=== PATIENT | male | born 2005 | race Caucasian/White ===

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

== ENCOUNTER 2025-04-11 18:09 | Emergency (ER) | payer MEDICAID, SELFPAY ==
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
[2025-04-11 19:35] VITALS: BP 112/79; PULSE 79; RESP 18; TEMP 36.8; O2SAT 99; BMI 22.1
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
--- OUTSIDE RECORDS SUMMARY | 2025-04-11 19:52 | XMS RPT_ITS | CCD ---
Author Organization [facility] Inform ion Partnership GUIDE EXCURSION [facility] Care Team Providers Care Shot Peening Operator Name Role Phone Michael Gloria MD Primary Care Provider Unavailable Primary Care Provider UnavailPeyman Olvera Attending Unavailable Michael Gloria Primary Care Unavailable MICHAEL GLORIA Attending Unavailable MICHAEL GLORIA Primary Care Unavailable REFERRED, SELF Referring Unavailable Medications Current Medications Medication Drug Class(es) Dates Sig (Normalized) Sig (Original) amoxicillin 875 mg / clavulanate 125 mg oral tablet (1 source) Penicillin-class Antibacterial Start: 08-01-2019 take 1 tablet by mouth twice daily Amoxicillin-Pot Clavulanate Active 1 TABLET PO TWICE A DAY August 01, 2019 2:18pm cyproheptadine hydrochloride 4 mg oral tablet (1 source) Start: 07-18-2023 take 1 tablet by mouth twice daily cyproheptadine (PERIACTIN) 4 MG tablet Take 1 Tablet (4 mg) by mouth 2 times daily 60 Tablet 5 07/18/2023 Active doxycycline monohydrate 100 mg oral capsule (1 source) Tetracycline-class Drug Start: 03-08-2022 take 100 mg by mouth twice daily Doxycycline Monohydrate Active 100 MG PO TWICE A DAY March 08, 2022 12:00am FLUoxetine 20 mg oral capsule (2 sources) Serotonin Reuptake Inhibitor Start: 02-23-2023 take 1 capsule by mouth once daily FLUoxetine (PROZAC) 10 MG capsule Take 1 Capsule (10 mg) by mouth daily 30 Capsule 2 02/23/2023 Active Start: 02-23-2023 take 1 capsule by mo [facility] once daily FLUoxetine (PROZAC) 20 MG capsule Take 1 Capsule (20 mg) by mouth daily 30 Capsule 2 02/23/2023 Active hydrOXYzine pamoate 25 mg oral capsule (1 source) Antihistamine Start: 03-08-2022 take 25 mg by mouth three times daily as needed Hydroxyzine Pamoate Active 25 MG PO 3 TIMES DAILY NEEDED March 08, 2022 12:00am Completed/Discontinued Medications Medication Drug Class(es) Dates Sig (Normalized) Sig (Original) 200 actuat albuterol 0.09 mg/actuat metered dose inhaler (2 sources) beta2-Adrenergic Agonist Start: 11-23-2012 take 2 puff(s) by inhalation every four hours as needed albuterol 90 mcg/actuation Aero Inhale 2 Puffs as instructed every 4 hours as needed. ( ADAM: Ventolin with dose counter) 1 Inhaler 3 11/23/2012 Active Comment on above: Inhale 2 Puffs as in structed every 4 hours as needed. ( ADAM: Ventolin with dose counter) barium sulfate (E-Z-HD) 98 % suspension 120 mL (1 source) Start: 08-07-2023 End: 08-07-2023 barium sulfate (E-Z-HD) 98 % suspension 120 mL barium sulfate (E-Z-PAQUE) 96 % contrast 60 mL (1 source) Start: 08-07-2023 End: 08-07-2023 barium sulfate (E-Z-PAQUE) 96 % contrast 60 mL ondansetron 4 mg oral tablet (2 sources) Serotonin-3 Receptor Antagonist Start: 01-10-2013 take 1 tablet by mouth every eight hours as needed ondansetron (ZOFRAN) 4 mg tablet Take 1 tablet by mouth every 8 hours as needed. 10 tablet 0 01/10/2013 Active Comment on above: Take 1 tablet by tomasa every 8 hours as needed. sod bicarb-citric ac-simeth (E-Z-GAS II) contrast 4 g (1 source) Start: 08-07-2023 End: 08-07-2023 sod bicarb-citric ac-simeth (E-Z-GAS II) contrast 4 g Problems Problem Classification Problem Date Documented Date Episodic/Chronic Abdominal pain (2 sources) Chronic abdominal pain; Translations: [Unspecified abdominal pain] Onset: 07-20-2023 08-07-2023 Episodic Anxiety disorders (2 sources) Anxiety state; Translations: [Generalized anxiety disorder] Onset: 01-03-2025 08-07-2023 Chronic Coma; stupor; and brain damage (1 source) Drowsy; Translations: [Somnolence] Episodic Fever of unknown origin (2 sources) Disorder characterized by fever; Translations: [Fever, unspecified] Episodic Fracture of upper limb (2 sources) Closed fracture of fifth metacarpal; Translations: [Unspecified fracture of other metacarpal bone, initial encounter for closed fracture] Episodic Immunizations and screening for infectious disease (1 source) At risk of sexually transmitted infection ; Translations: [Contact with and (suspected) exposure to infections with a predominantly sexual mode of transmission] 12-04-2023 Episodic Nausea and vomiting (2 sources) Vomiting; Translations: [Vomiting, unspecified] Onset: 07-20-2023 08-07-2023 Episodic Poisoning by nonmedicinal substances (1 source) 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; Translations: [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] Onset: 07-20-2023 07-24-2023 Episodic Screening and history of mental health and substance abuse codes (1 source) Patient condition resolved; Translations: [Personal history of other mental and behavioral disorders] Episodic Sprains and strains (4 sources) Sprain of ankle; Translations: [Sprain of unspecified ligament of right ankle, initial encounter] Episodic Substance-related disorders (1 source) Polysubstance abuse ; Translations: [Other psychoactive substance abuse, uncomplicated] Chronic Superficial injury; contusion (2 sources) Contusion of hand; Translations: [Contusion of right hand, initial encounter] Episodic Results Test Name Value Interpretation Reference Range Facil ity Progress Noteon 01-03-2025 Transformer Maker Authentication Interface Message Text Patient ID: Kunal Andino is a 19 y.o. male. His chief complaint(s) include: Depression Assessment 1. Depressive disorder 2. Acne vulgaris 3. Decreased vision of right eye Plan Kunal was seen today for depression. Diagnoses and associated orders for this visit: Depressive disorder Acne vulgaris - doxycycline (VIBRA-TABS) 100 MG tablet; Take 1 Tablet (100 mg) by mouth daily Use proper face washing techniques. Decreased vision of right eye - Vision Screening Return for Well Visit and as needed. EConsult--> guidance on PHP Family h/o NF-1- is this nodular acne or neurofibroma?? Subjective HPI Comments: [place] [facility] at [facility] (was at [facility]) Seen every other week Was seeing Dr. West for depression and prescribed fluoxetine Seen in [place] for light wave therapy and seems to help--> once weekly--> neurofeedback Not eating well, sleep has been erratic, feeling bad about self/ worthless, [place] screen completed Depression Primary Care Review of Systems Objective Vital Signs 01/03/25 1004 BP: 106/67 Pulse: 73 Weight: 69.1 kg Height: 179.4 cm Body mass index is 21.47 kg/m . Physical Exam Constitutional: He appears well. He is active. No distress. HENT: Head: Atraumatic. Ears: Right Ear: Tympanic membrane normal. Left Ear: Tympanic membrane normal. Mouth/Throat: Mucous membranes are moist. Nodular acne on face Cardiovascular: Normal rate and regular rhythm. Heart murmur not heard. Pulmonary/Chest: Breath sounds normal. There is normal air entry. Neurological: He is alert. Normal [facility] Emergency Department Summary on 11-23-2024 Emergency Department Summary [facility] Medical Records Department [address] [place] [id number] Emergency Department Summary 11/23/24 MR#: [id number] Acct: [id number] Name: KUNAL ANDINO Rep #: [id number] : 2005 19 From: Antonette DUNAWAY PCP: Dr. Michael Gloria MD Status:DEP ER Location: ED HPI History of Present Illness Chief Complaint: Anxiety Narrative Narrative: Patient presenting today with his mom due to concerns for anxiety after taking half a tab of acid about 30 minutes prior to arrival. He reports that the person he brought the LSD from told him it was, triple dipped and stronger than usual. He has done acid in the past and has had a similar reaction. He denies any other substance use. He denies hallucinations but reports that his vision is starting to look wavy. He denies HI and SI. [facility] Medical History Anxiety Home Medications ???Medication ???Instructions ???Recorded ???Last Taken ???Type doxycycline monohydrate 100 mg 100 mg PO BID 03/08/22 Unknown His tory capsule hydroxyzine pamoate 25 mg capsule 25 mg PO TID PRN PRN Anxiety 02/14 02/04 Unknown History Allergy/AdvReac Type Severity Reaction Status Date / Time No Known Allergies Allergy Verified 03/08/22 13:09 Social History Smoking Status: Current every day smoker tobacco type: e-cigarettes alcohol intake: never ROS ROS ED Constitutional Constitutional ED: Denies chills or fever(s) Cardiovascular Cardiovascular: Denies chest pain Respiratory/Chest Respiratory/Chest: Denies dyspnea Gastrointestinal Gastrointestinal: Denies abdominal pain, nausea or vomiting Musculoskeletal Musculoskeletal: Denies arthralgias or myalgias Integumentary Denies rash Neurologic Neurologic: Denies weakness Psychiatric Psychiatric: Reports anxiety; Denies depression, homicidal ideation, suicidal ideation or suicidal thoughts EXAM Physical Exam Const Vital Signs: 11/23/24 19:00 11/23/24 21:00 11/23/24 21:25 Temperature 96.2 F L 98.4 F Temperature Source Oral Pulse Rate 100 69 74 Respiratory Rate 22 H 16 Blood Pressure 132/64 H 112/58 L 115/70 Blood Pressure Mean 86 76 85 Pulse Ox 98 100 Oxygen Delivery Method Room Air Positive well nourished, well developed and no apparent distress General Appearance ED: well developed HEENT Reports normocephalic and head/scalp atraumatic Mouth ED: Yes moist mucous membranes normal Eyes PERRL and EOMs intact bilaterally Neck full ROM and supple Chest Wall inspection of chest normal Resp normal respiratory effort and clear to auscultation bilaterally Cardio regular rate and regular rhythm Back/Spine normal ROM and normal to inspection Extremity normal to inspection and full ROM Neuro oriented x3, CN's II-XII intact bilaterally, moves all extremities, no focal motor deficits and no sensory deficits noted Sensorium / Orientation: awake and alert Psych mental status grossly normal and thought process normal Mood Affect: anxious Skin no rashes or lesions noted and no wounds Physical Exam Const Vital Signs: 11/23/24 19:00 11/23/24 21:00 11/23/24 21:25 Temperature 96.2 F L 98.4 F Temperature Source Oral Pulse Rate 100 69 74 Respiratory Rate 22 H 16 Blood Pressure 132/64 H 112/58 L 115/70 Blood Pressure Mean 86 76 85 Pulse Ox 98 100 Oxygen Delivery Method Room Air MDM MDM MDM Narrative Medical decision making narrative: Patient presenting today due to anxiety after taking half a tab of acid about half an hour prior to arrival. He is here with his mom. He denies hallucinations but reports that his vision is getting, wavy. He reports feeling very anxious. Patient was given Ativan here. He was observed for few hours and on reexamination does report significant improvement of his symptoms. I advised no longer taking LSD. He denies any other substance use. Recommended that he follow-up with his PCP, patient discharged home in stable condition. I have personally performed a face to face assessment of the patient and have reviewed the ANDRIY Note. I performed a substantive portion of the visit including all aspects of the following. My pereira findings include: History is history is remarkable for reaction to presumed LSD use. Patient has used LSD in the past. Patient feels anxious. He is denying auditory or visual loose nations. Exam is vital signs remarkable for blood pressure 132/64 respirate of 22. HEENT exam is unremarkable. Logical auscultation. Heart is regular. Rate is normal. No murmur, gallop or rub. Patient is appropriate. Medical Decision Making patient was offered referral for drug use. He declined. (more content not included)... Normal [facility] CNPNon 12-05-2023 [facility] Telephone ([facility]) KUNAL ANDINO ([id number]) 5 M Date Time Provider Department 12/05/23 GIULIA CUNHA [facility] During your visit today, we recorded the following information about you: Giulia Cunha APRN.PAWAN 12/05/2023 7:16 AM Signed Negative for chlamydia, gonorrhea, and trichomonas. Please let him know. Abel Brewer 12/05/2023 8:04 AM Signed Patient given results and verbalized understanding of instructions given. Abel Brewer Allergies As of Date: 12/05/2023 (No Known Allergies) Date Reviewed: 12/04/2023 Reviewed by: Juana Francis APRN.LEADERSHIP PROGRAM INTERN - Fully Assessed Reason for Visit: Results [95] Prescriptions as of 12/05/2023 - ondansetron (ZOFRAN) 4 mg tablet Take 1 tablet by mouth every 8 hours as needed. - albuterol 90 mcg/actuation Aero Inhale 2 Puffs as instructed every 4 hours as needed. ( ADAM: Ventolin with dose counter) Problem List As Of Date: 12/05/2023 (None) Encounter Status:Closed by ABEL BREWER on 12/05/23 Normal [facility] C. trachomatis+N. gonorrhoea e DNA GEORGI+probe Ql (Unsp spec)on 12-04-2023 C. trachomatis rRNA GEORGI+probe Ql (Unsp spec) Negative Normal Negative for Chlamydia trachomatis by amplificaton [facility] Comment on above: Order Comment: Speci men Type: URINE SPECIMEN Ordering Facility: [facility] Address: [address] [place] [address] Performed By: #### T RVAMP, [id number] #### [facility] CLIA [id number] [address] [place] [address] [place] N. gonorrhoeae rRNA GEORGI+probe Ql (Unsp spec) Negative Normal Negative for Neisseria gonorrhoeae by amplification [facility] Comment on above: Order Comment: Speci men Type: URINE SPECIMEN Ordering Facility: [facility] Address: [address] [place] [address] Performed By: #### T RVAMP, [id number] #### [facility] CLIA [id number] [address] [place] [address] [place] CNOVon 12-04-2023 CNOV Office Visit ([facility]) KUNAL ANDINO ([id number]) 5 M Date Time Provider Department 12/04/23 1:30 PM KING JUANA [facility] During your visit today, we recorded the following information about you: Temperature Pulse Respiration Blood pressure 99 degrees 118/minute 21/minute 118/88 Weight 70.7 kg Juana Francis APRN.CNP 12/04/2023 2:46 PM Signed Subjective HPI HPI Kunal Andino is a 18 year old male who presents today for CC of burning with urination and blood in semen. This started bad for few weeks. Has tried nothing for relief. Symptoms are worsened by nothing. Current sexual partner stated she may have something no elaboration. Denies testicular pain, gu lesion, penile drainage.Reports otherwise feeling well. .Patient presents with: STD: Std testing, blood in sperm, burning with urination x 6 months PAST MEDICAL HISTORY Diagnosis Date Pneumonia 11/2011 RMSF (Ogema spotted fever) 2010 PAST SURGICAL HISTORY Procedure Laterality Date NONE ALLERGIES Patient has no known allergies. MEDICATIONS ondansetron (ZOFRAN) 4 mg tablet Take 1 tablet by mouth every 8 hours as needed. (Patient not taking: Reported on 12/04/2023) albuterol 90 mcg/actuation Aero Inhale 2 Puffs as instructed every 4 hours as needed. ( ADAM: Ventolin with dose counter) (Patient not taking: Reported on 12/04/2023) FAMILY HISTORY Problem Relation Age of Onset None Other Social History Tobacco Use Smoking status: Never ROS Objective Blood pressure 118/88, pulse 118, temperature 37.2 ?C (99 ?F), resp. rate 21, weight 70.7 kg (155 lb 12.8 oz), SpO2 98%. Physical Exam Constitutional: General: He is not in acute distress. Appearance: Normal appearance. He is not toxic-appearing. Cardiovascular: Rate and Rhythm: Normal rate and regular rhythm. Heart sounds: Normal heart sounds. Pulmonary: Effort: Pulmonary effort is normal. Breath sounds: Normal breath sounds. Abdominal: General: Bowel sounds are normal. Palpations: Abdomen is soft. Tenderness: There is no abdominal tenderness. Skin: General: Skin is warm and dry. ASSESSMENT/PLAN: 1. Possible exposure to STD - ICD9: V01.6, ICD10: Z20.2 Testing as below No treatment at time of exam Treat per testing. - GONORRHEA/CHLAMYDIA NAAT - TRICHOMONAS VAGINALIS NAAT Juana Francis APRN.PAWAN Allergies As of Date: 12/04/2023 (No Known Allergies) Date Reviewed: 12/04/2023 Reviewed by: Juana Francis APRN.PAWAN - Fully Assessed Reason for Visit: STD [102] Cmt: Std testing, blood in sperm, burning with urination x 6 months Primary Visit Diagnosis:Possible exposure to STD [Z20.2] Order(s):GONORRHEA/C HLAMYDIA NAAT [SQGCCT] Order #: [id number] FUTURE TRICHOMONAS VAGINALIS NAAT [SQTRVAMP] Order #: [id number]. #:[id number] GONORRHEA/CHLAMYDIA NAAT [SQGCCT] Order #: [id number]. #:[id number] Prescriptions as of 12/04/2023 - ondansetron (ZOFRAN) 4 mg tablet Take 1 tablet by mouth every 8 hours as needed. - albuterol 90 mcg/actuation Aero Inhale 2 Puffs as instructed every 4 hours as needed. ( ADAM: Ventolin with dose counter) Problem List As Of Date: 12/04/2023 (None) Encounter Status:Closed by JUANA FRANCIS on 12/04/23 Normal [facility] TRICHOMONAS VAGINALIS NAATon 12-04-2023 T. vaginalis DNA GEORGI+probe Ql (Unsp spec) Negative Normal Negative for Trichomonas vaginalis by amplification [facility] Comment on above: Order Comment: Speci men Type: URINE SPECIMEN Ordering Facility: [facility] Address: [address] [place] [address] Performed By: #### T RVAMP, [id number] #### [facility] CLIA [id number] [address] [place] [address] [place] [address] [place] RF Gastrointestinal tract up per Views W air contrast PO and W barium contrast Christina 08-07-2023 IMPRESSION: A few trace episodes of gastroesophageal reflux into the distal esophagus otherwise unremarkable. This report has been created using voice recognition software [facility] CLINICAL HISTORY: Recurrent vomiting. TECHNIQUE: Low-dose fluoroscopy (3 frames/sec) was used for evaluation of the upper GI tract. Fluoroscopy time: 3 minutes Estimated Dose area product: 857.2 uGy-m2. Contrast: 150 mL Barium by mouth. COMPARISON: None FINDINGS: The limited fluoroscopic assembler dry cell and battery image shows bowel gas present in a nonobstructive pattern. ESOPHAGUS: The esophagus is normal in contour, caliber and motility. STOMACH: Normal with no gastric outlet obstruction. DUODENUM: The bulb and C-loop appear normal. The duodenojejunal junction is normal in position. GASTROESOPHAGEAL REFLUX: A few trace episodes of gastroesophageal reflux was seen into the distal esophagus. [facility] RADIOLOG[facility] Khris Up MD - 08/07/2023 CLINICAL HISTORY: Recurrent vomiting. TECHNIQUE: Low-dose fluoroscopy (3 frames/sec) was used for evaluation of the upper GI tract. Fluoroscopy time: 3 minutes Estimated Dose area product: 857.2 uGy-m2. Contrast: 150 mL Barium by mouth. COMPARISON: None FINDINGS: The limited fluoroscopic assembler dry cell and battery image shows bowel gas present in a nonobstructive pattern. ESOPHAGUS: The esophagus is normal in contour, caliber and motility. STOMACH: Normal with no gastric outlet obstruction. DUODENUM: The bulb and C-loop appear normal. The duodenojejunal junction is normal in position. GASTROESOPHAGEAL REFLUX: A few trace episodes of gastroesophageal reflux was seen into the distal esophagus. IMPRESSION: A few trace episodes of gastroesophageal reflux into the distal esophagus otherwise unremarkable. This report has been created using voice recognition software [facility] Radiology Study observation (narrative) [facility] RF Gastrointestinal tract up per Views W air contrast PO and W barium contrast POOrdered By: Khris Up on 08-07-2023 [facility] Work Phone: Absolute lymphocyte counton 02-16-2022 Lymphocytes Auto (Unsp spec) [#/Vol] 2.47 10*3/uL 0.83-4.51 [facility] Work Phone: Basophil percentageon 2021 Basophils/100 WBC (Bld) 0.3 % 0-1 [facility] Work Phone: Bilirubin [Mass/Vol] 0.30 mg/dL 0.20-1.00 [facility] Work Phone: Comment on above: For patients on eltr ombopag therapy, use of Dimension [place] TBIL is not recommended. Chloride [Moles/Vol] 103 mmol/L 98-107 [facility] Work Phone: [phone] Eosinophils/100 WBC (Bld) 0.6 % 0-3 [facility] Work Phone: [phone] Glucose [Mass/Vol] 88 mg/dL 74-106 [facility] Work Phone: [phone] Neutrophils (Bld) [#/Vol] 6.1 10*3/uL 2.0-7.7 [facility] Work Phone: [phone] Neutrophils/100 WBC (Bld) 65.8 % 34-64 [facility] Work Phone: [phone] Potassium [Moles/Vol] 3.7 mmol/L 3.5-5.1 [facility] Work Phone: Protein [Mass/Vol] 8.5 g/dL 6.4-8.2 [facility] Work Phone: [phone] Sodium [Moles/Vol] 138 mmol/L 136-145 [facility] Work Phone: [phone] WBC (Bld) [#/Vol] 9.3 10*3/uL 4.5-13.0 [facility] Work Phone: Blood erythrocytes count (nu mber/volume)on 02-16-2022 RBC (Bld) [#/Vol] 5.33 10*6/uL 4.5-5.1 [facility] Work Phone: [phone] Blood hemoglobin measurement (mass/volume)on 02-16-2022 Hemoglobin (Bld) [Mass/Vol] 15.3 g/dL 13.0-16.5 [facility] Work Phone: [phone] Blood lymphocytes/100 leukoc yteson 02-16-2022 Lymphocytes/100 WBC (Bld) 26.7 % 25-45 [facility] Work Phone: [phone] Blood monocytes/100 leukocyt eson 02-16-2022 Monocytes/100 WBC (Bld) 6.1 % 3-6 [facility] Work Phone: Blood platelet mean volumeon 02-16-2022 Platelet mean volume (Bld) [Entitic vol] 10.3 fL 6.2-12.0 [facility] Work Phone: Determination of erythrocyte mean corpuscular volume (MCV)on 02-16-2022 MCV (RBC) [Entitic vol] 88.7 fL 78-96 [facility] Work Phone: Hematocrit Auto (Bld) [Volum e fraction]on 02-16-2022 Hematocrit (Bld) [Volume fraction] 47.3 % 36-47 [facility] Work Phone: Laboratory - Chemistry and C hemistry - challengeon 02-16-2022 ALP [Catalytic activity/Vol] 70 U/L 52-171 [facility] Work Phone: ALT [Catalytic activity/Vol] 31 U/L 16-61 [facility] Work Phone: CO2 [Moles/Vol] 26.0 mmol/L 21.0-32.0 [facility] Work Phone: Globulin (S) [Mass/Vol] 3.9 g/dL 2.2-4.2 [facility] Work Phone: Urea nitrogen/Creatinine [Mass ratio] 20.3 mg/mg 10-20 [facility] Work Phone: Laboratory - Hematology and Cell countson 02-16-2022 Erythrocyte distribution width (RBC) [Entitic vol] 41.3 fL 35.1-43.9 [facility] Work Phone: Erythrocyte distribution width (RBC) [Ratio] 12.7 % 11.6-14.6 [facility] Work Phone: Immature granulocytes/100 WBC (Bld) 0.500 % 0.0-0.9 [facility] Work Phone: Comment on above: IG% - Immature Granu locytes (promyelocytes, myelocytes and metamyelocytes) > 1% indicates that a LEFT SHIFT is Present. MCH (RBC) [Entitic mass] 28.7 pg 25.0-35.0 [facility] Work Phone: Nucleated RBC/100 WBC (Bld) [Ratio] 0 % 0-5 [facility] Work Phone: MCHC Auto (RBC) [Mass/Vol]on 02-16-2022 MCHC (RBC) [Mass/Vol] 32.3 g/dL 32-36 [facility] Work Phone: No Panel Informationon 02-16 Estimated GFR (MDRD) [facility] Work Phone: Comment on above: Test not performedAf rican Ecuadorean GFR Calc Estimated GFR (MDRD) Non-Af [facility] Work Phone: Comment on above: Test not performedNo n- GFR Calc Platelets bldon 02-16-2022 Platelets (Bld) [#/Vol] 275 10*3/uL 150-450 [facility] Work Phone: Serum or plasma C reactive p rotein measurement (mass/volume)on 02-16-2022 CRP [Mass/Vol] mg/L 0.0-3.0 [facility] Work Phone: Comment on above: C-Reactive Protein ( CRP) provides useful information for thediagnosis, therapy and monitoring of inflammatory processesand associated diseases. For the evaluation of Relative Riskfor Cardiovascular Disease, a High Sensitivity CRP (HSCRP)should be ordered. Serum or plasma IgA measurem ent (mass/volume)on 02-16-2022 IgA [Mass/Vol] 283 mg/dL [facility] Work Phone: Comment on above: Performed at: [address] [id number] Director: Kahlil Mars PhD, Phone: [phone] Serum or plasma albumin mahesh urement (mass/volume)on 02-16-2022 Albumin [Mass/Vol] 4.6 g/dL 3.2-5.0 [facility] Work Phone: Serum or plasma albumin/glob ulin mass ratioon 02-16-2022 Albumin/Globulin [Mass ratio] 1.2 {ratio} 0.9-2.4 [facility] Work Phone: Serum or plasma calcium mahesh urement (mass/volume)on 02-16-2022 Calcium [Mass/Vol] 9.4 mg/dL 8.5-10.1 [facility] Work Phone: Serum or plasma creatinine m easurement (mass/volume)on 02-16-2022 Creatinine [Mass/Vol] 0.84 mg/dL 0.70-1.30 [facility] Work Phone: Comment on above: The validity of the calculated GFR & GFRAA in patients over 70 years has not been determined. Clinical correlation is essential. Serum or plasma urea nitroge n measurement (mass/volume)on 02-16-2022 Urea nitrogen [Mass/Vol] 17 mg/dL 7-18 [facility] Work Phone: Serum tissue transglutaminas e IgA antibody assay (units/volume)on 02-16-2022 tTG IgA Qn (S) <2 U/mL [facility] Work Phone: Comment on above: Negative 0 - 3 Weak Positive 4 - 10 Positive >10 Tissue Transglutaminase (tTG) has been identified as the endomysial antigen. Studies have demonstr- ated that endomysial IgA antibodies have over 99% specificity for gluten sensitive enteropathy. Thin prep Papanicolaou smear with manual screeningon 02-16-2022 Thin prep Papanicolaou smear with manual screening 19 U/L 15-37 [facility] Work Phone: Thin prep Papanicolaou smear with manual screening 9 5-15 [facility] Work Phone: Vital Signs Date Time Vital Sign Value Performing Clinician Faci lity 12-04-2023 14:03-0500 Body temperature 99 [degF] Juana Francis APRN.LEADERSHIP PROGRAM INTERN Work Phone: [facility] 12-04-2023 14:03-0500 Body weight 70.67 kg Juana Francis APRN.LEADERSHIP PROGRAM INTERN Work Phone: [facility] 12-04-2023 14:03-0500 Diastolic blood pressure 88 mm[Hg] Juana Francis APRN.LEADERSHIP PROGRAM INTERN Work Phone: [facility] 12-04-2023 14:03-0500 Heart rate 118 /min Juana Francis HOSPICE CASE MANAGER.LEADERSHIP PROGRAM INTERN Work Phone: [facility] 12-04-2023 14:03-0500 Respiratory rate 21 /min Juana Francis APRN.LEADERSHIP PROGRAM INTERN Work Phone: [facility] 12-04-2023 14:03-0500 SaO2% (BldA) [Mass fraction] 98 % Juana Francis APRN.LEADERSHIP PROGRAM INTERN Work Phone: [facility] 12-04-2023 14:03-0500 Systolic blood pressure 118 mm[Hg] Juana Francis HOSPICE CASE MANAGER.LEADERSHIP PROGRAM INTERN Work Phone: [facility] 02-15-2022 16:03-0400 Body height 137.16 cm [facility] Work Phone: Encounters Encounter Date Encounter Type Care Provider Facility Start: 01-03-2025 End: 01-03-2025 ambulatory MICHAEL Foley TRA [facility] Start: 11-23-2024 End: 11-23-2024 Emergency department patient visit [facility] Facility:[facility] Start: 12-05-2023 Telephone encounter Giulia Cunha APRN.LEADERSHIP PROGRAM INTERN Work Phone: [facility] Comment on above: Results Start: 12-04-2023 End: 12-04-2023 ambulatory Facility:[facility] Start: 12-04-2023 End: 12-04-2023 Patient encounter procedure Juana Francis APRN.LEADERSHIP PROGRAM INTERN Work Phone: [facility] Comment on above: Possible exposure to STD (Primary Dx) Start: 08-07-2023 End: 08-07-2023 Subsequent hospital visit by physician Dru Guevara MD Work Phone: Radiology Comment on above: Anxiety state; Chronic abdominal pain; Recurrent vomiting Start: 07-23-2022 End: 07-23-2022 ambulatory [facility] Work Phone: Start: 07-23-2022 End: 07-23-2022 Patient encounter procedure [facility]tras[facility], [facility] Start: 02-16-2022 End: 02-16-2022 Patient encounter procedure [facility]-Laboratory, [place] Procedures Date Procedure Procedure Detail Performing Clinician Start: 08-07-2023 Radiologic exam upr gi trc single contrast study Dru Guevara MD Work Phone: Start: 07-23-2022 CT of abdomen Plan of Treatment Date Care Activity Detail Author Start: 05-24-2028 Tetanus Diphtheria a nd Pertussis Vaccines (7 - Td or Tdap) Tetanus Diphtheria and Pertussis Vaccines (7 - Td or Tdap) [facility] Start: 05-24-2028 Urine microalbumin profile DTaP,Tdap,Td Vaccine (7 - Td or Tdap) [facility] Start: 12-04-2023 End: 03-04-2024 Chlamydia trachomatis+Neisseria gonorrhoeae DNA [Presence] in Unspecified specimen by GEORGI with probe detection [facility] Work Phone: Comment on above: Expected: 12/04/2023 , Expires: 03/04/2024 Start: 2023 Hepatitis C screening Hepatitis C [facility] Start: 2023 HIV screening HIV Screening [facility] [place] Start: 10-16-2023 Depression Assessment Depression Ass [facility] Start: 09-06-2023 End: 09-06-2023 Admission to same day surgery center 09/06/2023 10:38 AM EST - 09/06/2023 11:05 AM EST Surgery [place] [place] [address] [place] [address] Endoscopy Upper (Flexible) with biopsies and disaccharidases [facility] Comment on above: Endoscopy Upper (Fle xible) with biopsies and disaccharidases Start: 09-06-2023 End: 09-06-2023 Endoscopy Upper (Flexible) Endoscopy Upper (Flexible) Chronic abdominal pain Recurrent vomiting 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 Start: 06-16-2023 Influenza vaccination Influenza Vacc ine (#1) [facility] Start: 2021 MenACWY (2 - 2-dose series) MenACWY (2 - 2-dose series) [facility] Start: 2021 MenB (1 of 2 - MenB 2-Dose Series Bexsero) MenB (1 of 2 - MenB 2-Dose Series Bexsero) [facility] Start: 2021 Meningococcal B Vacc ine: Consider Based On Risk (1 of 2 - Patient Seeks Protection) Meningococcal B Vaccine: Consider Based On Risk (1 of 2 - Patient Seeks Protection) [facility] Start: 2021 Meningococcal Conjug ate Vaccine (2 - 2-dose series) Meningococcal Conjugate Vaccine (2 - 2-dose series) [facility] Start: 07-08-2021 Well Visit Well Visit [facility] Start: 2020 Hearing Screening Hearing Screening [facility] Start: 2020 PATH Education 15-17 + Years PATH Education 15-17+ Years [facility] Start: 2020 Vision Screening Vision Screening [facility] Start: 2019 Peds To Adult Transi tion Annual Assessment Peds To Adult Transition Annual Assessment [facility] Start: 2017 PATH Education 12-14 + Years PATH Education 12-14+ Years [facility] Start: 2017 PATH Transitional Assessment PATH Transitional Assessment [facility] Start: 2017 Peds To Adult Transi tion Initial Discussion Peds To Adult Transition Initial Discussion [facility] Start: 2016 HPV (1 - Male 2-dose series) HPV (1 - Male 2-dose series) [facility] Start: 2014 HPV Vaccine (1 - Mal e 2-dose series) HPV Vaccine (1 - Male 2-dose series) [facility] Start: 03-09-2010 Varicella (2 of 2 - 2-dose childhood series) Varicella (2 of 2 - 2-dose childhood series) [facility] Start: 2006 Hepatitis A (1 of 2 - 2-dose series) Hepatitis A (1 of 2 - 2-dose series) [facility] Start: 04-20-2006 COVID-19 (#1) COVID-19 (#1) [facility] Start: 04-20-2006 Covid-19 Vaccine (#1) Covid-19 Vacci ne (#1) [facility] TRICHOMONAS VAGINALI S NAAT TRICHOMONAS VAGINALIS NAAT Lab Routine Possible exposure to STD 12/04/2023 2:32 PM EST [facility] Work Phone: Immunizations Immunization Date Immunization Notes Care Provider Leonides crenshaw 05-24-2018 meningococcal polysaccharide (groups A, C, Y and W-135) diphtheria toxoid conjugate vaccine (MCV4P) Dru Guevara MD Work Phone: [facility] 05-24-2018 tetanus toxoid, redu salo diphtheria toxoid, and acellular pertussis vaccine, adsorbed Dru Guevara MD Work Phone: [facility] 02-09-2010 diphtheria, tetanus toxoids and acellular pertussis vaccine Dru Guevara MD Work Phone: [facility] 02-09-2010 measles, mumps and rubella virus vaccine Dru Guevara MD Work Phone: [facility] 02-09-2010 poliovirus vaccine, inactivated Dru Guevara MD Work Phone: [facility] 02-14-2007 diphtheria, tetanus toxoids and acellular pertussis vaccine Dru Guevara MD Work Phone: [facility] 02-14-2007 measles, mumps and rubella virus vaccine Dru Guevara MD Work Phone: [facility] 02-14-2007 varicella virus vaccine Anupam Guevara MD Work Phone: [facility] 11-15-2006 haemophilus influenz ae type b vaccine, PRP-T conjugate Dru Guevara MD Work Phone: [facility] 11-15-2006 pneumococcal conjuga te vaccine, 13 valent Dru Guevara MD Work Phone: [facility] 05-08-2006 diphtheria, tetanus toxoids and acellular pertussis vaccine Dru Guevara MD Work Phone: [facility] 05-08-2006 hepatitis B vaccine, pediatric or pediatric/adolescent dosage Dru Guevara MD Work Phone: [facility] 05-08-2006 pneumococcal conjuga te vaccine, 13 valent Dru Guevara MD Work Phone: [facility] 05-08-2006 poliovirus vaccine, inactivated Dru Guevara MD Work Phone: [facility] 03-07-2006 diphtheria, tetanus toxoids and acellular pertussis vaccine Dru Guevara MD Work Phone: [facility] 03-07-2006 haemophilus influenz ae type b vaccine, PRP-T conjugate Dru Guevara MD Work Phone: [facility] 03-07-2006 pneumococcal conjuga te vaccine, 13 valent Dru Guevara MD Work Phone: [facility] 03-07-2006 poliovirus vaccine, inactivated Dru Guevara MD Work Phone: [facility] 2005 diphtheria, tetanus toxoids and acellular pertussis vaccine Dru Guevara MD Work Phone: [facility] 2005 haemophilus influenz ae type b vaccine, PRP-T conjugate Dru Guevara MD Work Phone: [facility] 2005 hepatitis B vaccine, pediatric or pediatric/adolescent dosage Dru Guevara MD Work Phone: [facility] 2005 pneumococcal conjuga te vaccine, 13 valent Dru Guevara MD Work Phone: [facility] 2005 poliovirus vaccine, inactivated Dru Guevara MD Work Phone: [facility] 2005 hepatitis B vaccine, pediatric or pediatric/adolescent dosage Dru Guevara MD Work Phone: [facility] Payers Date Payer Category Payer Self-pay [id number] 2019 Medicaid [employer] [employer] [id number] 2019-Present [phone] [address] [place] [address] Medicaid [id number] 2019 Unknown [id number] 2005 Unknown [id number] [facility] [id number] 2003-Present [address] [place] [id number] Unknown [id number] Social History Date Type Detail Facility Start: 08-01-2019 End: 03-08-2022 Tobacco smoking status NHIS Unknown if ever smoked [facility] Work Phone: Start: 2005 Sex Assigned At Male [facility] Work Phone: Start: 09-13-2022 Tobacco smoking stat us NHIS Smokes tobacco daily [facility] History of tobacco use Tobacco U se Types Packs/Day Years Used Date Smoking Tobacco: Every Day Vaping Passive Smoke Exposure: Never Smokeless Tobacco: Never [facility] Start: 09-13-2022 Tobacco use and exposure Smokeless tobacco non-user [facility] Start: 07-20-2023 End: 12-04-2023 Alcohol intake Not Asked [facility] Start: 07-20-2023 End: 12-04-2023 History of Social function [facility] Start: 07-20-2023 End: 12-04-2023 Tobacco use panel [facility] Adolescent depressio n screening assessment 2 [facility] Start: 09-13-2022 Tobacco Comment outside [facility] Start: 2005 Sex Assigned At Not on file A [facility] Tobacco smoking stat us NHIS Never smoked tobacco [facility] NEGATED: Highlighted rowStart: NINF History of tobacco use Passive smoker [facility] Note 12-05-2023 Telephone Encounter - Abel Brewer - 12/05/2023 8:04 AM ESTTelephone Encounter - Giulia Cunha APRN.CNP - 12/05/2023 7:14 AM EST Note Date & Type Note Facility 12-05-2023 Miscellaneous Notes Formattin g of this note might be different from the original. Patient given results and verbalized understanding of instructions given. Abel Brewer Negative for chlamydia, gonorrhea, and trichomonas. Please let him know. documented in this encounter [facility] Progress note 12-04-2023 Note Date & Type Note Facility 12-04-2023 Note HNO ID: [id number] Author: JUANA FRANCIS APRN.PAWAN Service: ? Author Type: Nurse Practitioner Type: Progress Notes Filed: 12/04/2023 14:46 Note Text: Subjective HPI HPI Kunal Andino is a 18 year old male who presents today for CC of burning with urination and blood in semen. This started bad for few weeks. Has tried nothing for relief. Symptoms are worsened by nothing. Current sexual partner stated she may have something no elaboration. Denies testicular pain, gu lesion, penile drainage.Reports otherwise feeling well. .Patient presents with: STD: Std testing, blood in sperm, burning with urination x 6 months PAST MEDICAL HISTORY Diagnosis Date Pneumonia 11/2011 RMSF (Ogema spotted fever) 2010 PAST SURGICAL HISTORY Procedure Laterality Date NONE ALLERGIES Patient has no known allergies. MEDICATIONS ondansetron (ZOFRAN) 4 mg tablet Take 1 tablet by mouth every 8 hours as needed. (Patient not taking: Reported on 12/04/2023) albuterol 90 mcg/actuation Aero Inhale 2 Puffs as instructed every 4 hours as needed. ( ADAM: Ventolin with dose counter) (Patient not taking: Reported on 12/04/2023) FAMILY HISTORY Problem Relation Age of Onset None Other Social History Tobacco Use Smoking status: Never ROS Objective Blood pressure 118/88, pulse 118, temperature 37.2 ?C (99 ?F), resp. rate 21, weight 70.7 kg (155 lb 12.8 oz), SpO2 98%. Physical Exam Constitutional: General: He is not in acute distress. Appearance: Normal appearance. He is not toxic-appearing. Cardiovascular: Rate and Rhythm: Normal rate and regular rhythm. Heart sounds: Normal heart sounds. Pulmonary: Effort: Pulmonary effort is normal. Breath sounds: Normal breath sounds. Abdominal: General: Bowel sounds are normal. Palpations: Abdomen is soft. Tenderness: There is no abdominal tenderness. Skin: General: Skin is warm and dry. ASSESSMENT/PLAN: 1. Possible exposure to STD - ICD9: V01.6, ICD10: Z20.2 Testing as below No treatment at time of exam Treat per testing. - GONORRHEA/CHLAMYDIA NAAT - TRICHOMONAS VAGINALIS NAAT Juana Francis APRN.PAWAN [facility] History of Present illness Narrative 12-04-2023 Juana Francis APRN.PAWAN - 12/04/2023 2:22 PM EST Note Date & Type Note Facility 12-04-2023 History of Presen t illness Narrative Subjective HPI HPI Kunal Andino is a 18 year old male who presents today for CC of burning with urination and blood in semen. This started bad for few weeks. Has tried nothing for relief. Symptoms are worsened by nothing. Current sexual partner stated she may have something no elaboration. Denies testicular pain, gu lesion, penile drainage.Reports otherwise feeling well. .Patient presents with: STD: Std testing, blood in sperm, burning with urination x 6 months PAST MEDICAL HISTORY Diagnosis Date Pneumonia 11/2011 RMSF (Ogema spotted fever) 2010 PAST SURGICAL HISTORY Procedure Laterality Date NONE ALLERGIES Patient has no known allergies. MEDICATIONS ondansetron (ZOFRAN) 4 mg tablet Take 1 tablet by mouth every 8 hours as needed. (Patient not taking: Reported on 12/04/2023) albuterol 90 mcg/actuation Aero Inhale 2 Puffs as instructed every 4 hours as needed. ( ADAM: Ventolin with dose counter) (Patient not taking: Reported on 12/04/2023) FAMILY HISTORY Problem Relation Age of Onset None Other Social History Tobacco Use Smoking status: Never ROS Objective Blood pressure 118/88, pulse 118, temperature 37.2 C (99 F), resp. rate 21, weight 70.7 kg (155 lb 12.8 oz), SpO2 98%. Physical Exam Constitutional: General: He is not in acute distress. Appearance: Normal appearance. He is not toxic-appearing. Cardiovascular: Rate and Rhythm: Normal rate and regular rhythm. Heart sounds: Normal heart sounds. Pulmonary: Effort: Pulmonary effort is normal. Breath sounds: Normal breath sounds. Abdominal: General: Bowel sounds are normal. Palpations: Abdomen is soft. Tenderness: There is no abdominal tenderness. Skin: General: Skin is warm and dry. ASSESSMENT/PLAN: 1. Possible exposure to STD - ICD9: V01.6, ICD10: Z20.2 Testing as below No treatment at time of exam Treat per testing. 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 Anxiety state Anxiety state, unspecified Chronic abdominal pain Abdominal pain, unspecified site Recurrent vomiting Vomiting alone Chronic abdominal pain Abdominal pain, unspecified site Recurrent vomiting Vomiting alone 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 documented in this encounter [facility] Evaluation note Note Date & Type Note Facility Evaluation note Diagnosis Possible exposure to STD- Primary Other specified personal history presenting hazards to health documented in this encounter [facility] Reason for referral (narrative) Referral (Routine) - Closed Note Date & Type Note Facility Reason for referral (narrati ve) Specialty Diagnoses / Procedures Referred By Contac t Referred To Contact Radiology Diagnoses Anxiety state Chronic abdominal pain Recurrent vomiting Procedures FL Upper GI Without Air Without KUB CHG RADIOLOGIC EXAM UPR GI TRC SINGLE CONTRAST [place] [address] Referral ID Status Reason Start Date Expiration Date Visits Re quested Visits Authorized [id number] Closed 07/20/2023 07/19/2024 1 1 [facility] Reason for visit Narrative Referral (Routine) - Closed Note Date & Type Note Facility Reason for visit Narrative Specialty Diagnoses / Procedures Referred By Contac t Referred To Contact Radiology Diagnoses Anxiety state Chronic abdominal pain Recurrent vomiting Procedures FL Upper GI Without Air Without KUB CHG RADIOLOGIC EXAM UPR GI TRC SINGLE CONTRAST [place]UDY [place] [address] Referral ID Status Reason Start Date Expiration Date Visits Re quested Visits Authorized [id number] Closed 07/20/2023 07/19/2024 1 1 [facility] Chief Complaint and Reason for Visit Chief Complaint HEMATOCHEZIA/ Melena Chief Complaint ABD PAIN Advance Directives No Advanced Directives Records Found Advance Directive Response Recorded Date/ Time Living Will No March 15, 2016 8 :46pm Power of Decorator Street And Building No March 15, 2016 8:46pm Summary Purpose Family History No Family History Records FoundNo Family History Records FoundNo Family History Records Found Additional Source Comments Goals (unrecognized section and content) Goals may be documented in a n alternate sectionGoals may be documented in an alternate section Care Teams (unrecognized sec tion and content) Shot Peening Operator Relationship Specialty Start Date End Date Michael Gloria MD PCP - General 01/06/20 Source Comments (unrecognize d section and content) In the event this informatio n is protected by the Federal Confidentiality of Alcohol and Drug Abuse Patient Records regulations: The Federal rules restrict any use of the information to criminally investigate or prosecute any alcohol or drug abuse patient.[facility] the event this information is protected by the Federal Confidentiality of Alcohol and Drug Abuse Patient Records regulations: The Federal rules restrict any use of the information to criminally investigate or prosecute any alcohol or drug abuse patient.[facility] Reason for Visit (unrecogniz ed section and content) Reason Comments STD Std testing, blood i n sperm, burning with urination x 6 months Reason Comments Results (unrecognized sect ion and content) No Status Records FoundNo Status Records FoundNo Status Records Found INFORMATION SOURCE (unrecogn ized section and content) DATE CREATED AUTHOR 12/05/2023 [facility] DATE CREATED AUTHOR AUTHOR'S KAMALJIT FLOOD 01/05/2025 [facility] DATE CREATED AUTHOR AUTHOR'S KAMALJIT ATION 01/06/2025 [facility] FOR RECORDS PERTAINING TO PATIENTS WHO ARE OR HAVE BEEN ENROLLED IN A CHEMICAL DEPENDENCY/SUBSTANCEABUSE PROGRAM, SOME INFORMATION MAY BE OMITTED. This clinical summary was aggregated from multiple sources. Caution should be exercised in using it in the provision of clinical care. This summary normalizes information from multiple sources, and as a consequence, information in this document may materially change the coding, format and clinical context of patient data. In addition, data may be omitted in some cases. CLINICAL DECISIONS SHOULD BE BASED ON THE PRIMARY CLINICAL RECORDS. [employer]. provides no warranty or guarantee of the accuracy or completeness of information in this document.
[2025-04-11 20:10] VITALS: BP 110/65; PULSE 75; RESP 18; TEMP 36.7; O2SAT 98
== END 2025-04-11 20:11 | disposition home or self-care (01) ==
PROVIDERS: Emergency Provider Emergency Medicine; PCP Pediatrics; Visit Provider Emergency Medicine
DX: S30.22XA Contusion of scrotum and testes, initial encounter (principal); N52.9 Male erectile dysfunction, unspecified; I86.1 Scrotal varices; F17.290 Nicotine dependence, other tobacco product, uncomplicated; W21.07XA Struck by softball, initial encounter
CPT/HCPCS: 76870; 93976; 99282

== ENCOUNTER 2025-06-07 14:03 | Emergency (ER) | payer MEDICAID, SELFPAY ==
[2025-06-07 14:04] VITALS: BP 124/81; PULSE 113; RESP 16; TEMP 36.8; O2SAT 98; BMI 22.9
--- NOTE | 2025-06-07 15:25 | RAD_ITS ---
PROCEDURE: FOOT MIN 3 VIEWS 06/07/2025 REASON FOR EXAM: PAIN ,SWELLING TRAUMA FROM [employer]. Initial encounter. TECHNIQUE: FOOT MIN 3 VIEWS Laterality: Left foot COMPARISON: None. FINDINGS: Bones: No fracture, no dislocation. Joints: No significant osteoarthritis Soft tissues: no significant swelling appreciated. Other: RAD/Foot min 3 Views IMPRESSION: No fracture appreciated. If clinical suspicion remains high, conservative roberta tment and follow-up in x-ray in 2 weeks. If clinically indicated, consider CT exam Reading [facility]
--- NOTE | 2025-06-07 15:34 | EDS_ITS ---
HPI History of Present Illness Chief Complaint: Lower Extremity Injury [facility] Medical History Anxiety Home Medications ?Medication ?Instructions ?Recorded ?Last Taken ?Type doxycycline monohydrate 100 mg 100 mg PO BID 03/08/22 Unknown History capsule hydroxyzine pamoate 25 mg capsule 25 mg PO TID PRN PRN Anxiety 03/08/22 Unknown History Allergy/AdvReac Type Severity Reaction Status Date / Time No Known Allergies Allergy Verified 06/07/25 14:04 Social History Smoking Status: Current every day smoker tobacco type: e-cigarettes alcohol intake: never EXAM Physical Exam Const Vital Signs: 06/07/25 14:04 Temperature 98.2 F Temperature Source Oral Pulse Rate 113 H Respiratory Rate 16 Blood Pressure 124/81 H Blood Pressure Mean 95 Pulse Ox 98 Oxygen Delivery Method Room Air [facility] [place] Narrative Medical decision making narrative: HISTORY OF PRESENT ILLNESS: Chief complaint: Left foot pain 19-year-old male presents left foot pain after a cement block fell on it. REVIEW OF SYSTEMS: Pertinent positives: Left foot pain Pertinent negatives: Loss of sensation PHYSICAL EXAM: Nursing triage notes reviewed, Vital signs reviewed Constitutional: please see mdm Extremities: No edema, compartments are soft Neuro: Intact sensation L1-S1 dermatomal distributions. Intact 5/5 strength in hip flexion (T12-L3). Knee extension (L2-L4). Ankle dorsiflexion (L4-L5). Ankle plantar flexion (S1). Great toe extension (L5). 2+ patellar and Achilles DTRs. Skin: Slight erythema noted to the dorsum of the foot. No sign of laceration open fracture. MEDICAL DECISION MAKING: Chief Complaint: please see HPI External records reviewed: [Reviewed prior imaging studies Factors affecting care: none Social determinants of health: none History obtained from others: none Consults: none [facility] Narrative: Patient was initially hemodynamically stable, afebrile and nontoxic-appearing. Exam with neurovascular intact left lower extremity. I considered the following differential diagnosis: Foot fracture, dislocation, contusion I obtained an x-ray to further determine if the patient was suffering from a life-threatening etiology. Initially treated with ibuprofen and ice ALL IMAGES (IF OBTAINED) HAVE BEEN PERSONALLY REVIEWED AND INTERPRETED BY MYSELF. X-ray was interpreted personally by myself showed no evidence of obvious fracture or dislocation. The patient and/or family, caregivers express understanding. The patient and/or family, caregivers agrees with the plan. Shared decision making: I will have a discussion with the patient and or visitors regarding risk/benefits of further testing or admission. They will be made aware of of the risk/benefits inherent in this decision they will be given the opportunity to voice understanding. Total critical care time today provided was at least 0 minutes. This excludes separately billable procedures. Critical care time (if documented) is secondary to the patient having high probability of clinically significant/life threatening deterioration in the patient's condition which required my urgent in tervention. Impression: 1. Acute foot pain 2. Acute foot contusion Dispo: Discharge home This note was generated with [employer] dictation software. It may contain incorrect words, spelling, and punctuation that were not noted in review of the chart prior to signing. Radiography Diagnostic Testing: Clinical Impression(s) from Imaging Studies Foot X-Ray 06/07/25 15:25 IMPRESSION: No fracture appreciated. If clinical suspicion remains high, conservative treatment and follow-up in x-ray in 2 weeks. If clinically indicated, consider CT exam Reading Location: [facility], [facility] Discharge Plan Triage Chief Complaint: Lower Extremity Injury ED Provider: Yrn Kapadia Dx/Rx/DC Orders Prescriptions: No Action doxycycline monohydrate 100 mg capsule 100 mg PO BID hydroxyzine pamoate 25 mg capsule 25 mg PO TID PRN PRN (Reason: Anxiety) Primary Care Provider: Devaughn Gloria Referrals: Devaughn Gloria MD [Primary Care Provider] - Print Language: Chadian
--- OUTSIDE RECORDS SUMMARY | 2025-06-07 16:07 | XMS RPT_ITS | CCD ---
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 CHECKER Work Phone: [facility] Comment on above: Results Start: 12-04-2023 End: 12-04-2023 ambulatory Facility:[facility] Start: 12-04-2023 End: 12-04-2023 Patient encounter procedure Juana Francis APRN.RASPBERRY CHECKER Work Phone: [facility] Comment on above: Possible exposure to STD (Primary Dx) Start: 08-07-2023 End: 08-07-2023 Subsequent hospital visit by physician Dru Guevara MD Work Phone: Radiology Comment on above: Anxiety state; Chronic abdominal pain; Recurrent vomiting Start: 07-23-2022 End: 07-23-2022 ambulatory [facility] Work Phone: Start: 07-23-2022 End: 07-23-2022 Patient encounter procedure [facility], [facility] Start: 02-16-2022 End: 02-16-2022 Patient encounter procedure [facility]-Laboratory, [place] Procedures Date Procedure Procedure Detail Performing Clinician Start: 04-11-2025 Ultrasound of scrotu m with Doppler and color flow imaging Dr. Michael Gloria MD Work Phone: Start: 08-07-2023 Radiologic exam upr gi trc single contrast study Dru Guevara MD Work Phone: Start: 07-23-2022 CT of abdomen Plan of Treatment Date Care Activity Detail Author Start: 05-24-2028 Tetanus Diphtheria a nd Pertussis Vaccines (7 - Td or Tdap) Tetanus Diphtheria and Pertussis Vaccines (7 - Td or Tdap) [facility] Start: 05-24-2028 Urine microalbumin profile DTaP,Tdap,Td Vaccine (7 - Td or Tdap) [facility] Start: 04-11-[address] [facility] Start: 12-04-2023 End: 03-04-2024 Chlamydia trachomatis+Neisseria gonorrhoeae DNA [Presence] in Unspecified specimen by GEORGI with probe detection [facility] Work Phone: Comment on above: Expected: 12/04/2023 , Expires: 03/04/2024 Start: 2023 Hepatitis C screening Hepatitis C Ar carina [facility] Start: 2023 HIV screening HIV Screening [facility] Start: 10-16-2023 Depression Assessment Depression Ass essment [facility] Start: 09-06-2023 End: 09-06-2023 Admission to same day surgery center 09/06/2023 10:38 AM EST - 09/06/2023 11:05 AM EST Surgery [facility] [place] [address] [place] [address] Endoscopy Upper (Flexible) with biopsies and disaccharidases [facility] Comment on above: Endoscopy Upper (Fle xible) with biopsies and disaccharidases Start: 09-06-2023 End: 09-06-2023 Endoscopy Upper (Flexible) Endoscopy Upper (Flexible) Chronic abdominal pain Recurrent vomiting 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 Start: 09-06-2023 Subsequent hospital visit by physician 09/06/2023 10:38 AM EST Hospital Encounter [facility] [place] [address] [place] [address] [facility] Start: 06-16-2023 FLU (#1) FLU (#1) [facility] Start: 06-16-2023 Influenza vaccination Influenza Vacc ine (#1) [facility] Start: 2021 MenACWY (2 - 2-dose series) MenACWY (2 - 2-dose series) [facility] Start: 2021 MenB (1 of 2 - MenB 2-Dose Series Bexsero) MenB (1 of 2 - MenB 2-Dose Series Bexsero) [facility] Start: 2021 Meningococcal B Vacc ine: Consider Based On Risk (1 of 2 - Patient Seeks Protection) Meningococcal B Vaccine: Consider Based On Risk (1 of 2 - Patient Seeks Protection) [facility] Start: 2021 Meningococcal Conjug ate Vaccine (2 - 2-dose series) Meningococcal Conjugate Vaccine (2 - 2-dose series) [facility] Start: 07-08-2021 Well Visit Well Visit [facility] Start: 2020 Hearing Screening Hearing Screening [facility] Start: 2020 PATH Education 15-17 + Years PATH Education 15-17+ Years [facility] Start: 2020 Vision Screening Vision Screening [facility] Start: 2019 Peds To Adult Transi tion Annual Assessment Peds To Adult Transition Annual Assessment [facility] Start: 2017 PATH Education 12-14 + Years PATH Education 12-14+ Years [facility] Start: 2017 PATH Transitional Assessment PATH Transitional Assessment [facility] Start: 2017 Peds To Adult Transi tion Initial Discussion Peds To Adult Transition Initial Discussion [facility] Start: 2016 HPV (1 - Male 2-dose series) HPV (1 - Male 2-dose series) [facility] Start: 2014 HPV Vaccine (1 - Mal e 2-dose series) HPV Vaccine (1 - Male 2-dose series) [facility] Start: 03-09-2010 Varicella (2 of 2 - 2-dose childhood series) Varicella (2 of 2 - 2-dose childhood series) [facility] Start: 2006 Hepatitis A (1 of 2 - 2-dose series) Hepatitis A (1 of 2 - 2-dose series) [facility] Start: 04-20-2006 COVID-19 (#1) COVID-19 (#1) [facility] Start: 04-20-2006 Covid-19 Vaccine (#1) Covid-19 Vacci ne (#1) [facility] Patient Education Evaluating Ere ctile Dysfunction ED Contusion Testicles Scrotum [facility] Work Phone: TRICHOMONAS VAGINALI S NAAT TRICHOMONAS VAGINALIS NAAT Lab Routine Possible exposure to STD 12/04/2023 2:32 PM EST [facility] Work Phone: Immunizations Immunization Date Immunization Notes Care Provider Leonides crenshaw 05-24-2018 meningococcal polysaccharide (groups A, C, Y and W-135) diphtheria toxoid conjugate vaccine (MCV4P) Dru Guevara MD Work Phone: [facility] 05-24-2018 tetanus toxoid, redu salo diphtheria toxoid, and acellular pertussis vaccine, adsorbed Dru Guevara MD Work Phone: [facility] 02-09-2010 diphtheria, tetanus toxoids and acellular pertussis vaccine Dru Guevara MD Work Phone: [facility] 02-09-2010 measles, mumps and rubella virus vaccine Dru Guevara MD Work Phone: [facility] 02-09-2010 poliovirus vaccine, inactivated Dru Guevara MD Work Phone: [facility] 02-14-2007 diphtheria, tetanus toxoids and acellular pertussis vaccine Dru Guevara MD Work Phone: [facility] 02-14-2007 measles, mumps and rubella virus vaccine Dru Guevara MD Work Phone: [facility] 02-14-2007 varicella virus vaccine Anupam Guevara MD Work Phone: [facility] 11-15-2006 haemophilus influenz ae type b vaccine, PRP-T conjugate Dru Guevara MD Work Phone: [facility] 11-15-2006 pneumococcal conjuga te vaccine, 13 valent Dru Guevara MD Work Phone: [facility] 05-08-2006 diphtheria, tetanus toxoids and acellular pertussis vaccine Dru Guevara MD Work Phone: [facility] 05-08-2006 hepatitis B vaccine, pediatric or pediatric/adolescent dosage Dru Guevara MD Work Phone: [facility] 05-08-2006 pneumococcal conjuga te vaccine, 13 valent Dru Guevara MD Work Phone: [facility] 05-08-2006 poliovirus vaccine, inactivated Dru Guevara MD Work Phone: [facility] 03-07-2006 diphtheria, tetanus toxoids and acellular pertussis vaccine Dru Guevara MD Work Phone: [facility] 03-07-2006 haemophilus influenz ae type b vaccine, PRP-T conjugate Dru Guevara MD Work Phone: [facility] 03-07-2006 pneumococcal conjuga te vaccine, 13 valent Dru Guevara MD Work Phone: [facility] 03-07-2006 poliovirus vaccine, inactivated Dru Guevara MD Work Phone: [facility] 2005 diphtheria, tetanus toxoids and acellular pertussis vaccine Dru Guveara MD Work Phone: [facility] 2005 haemophilus influenz ae type b vaccine, PRP-T conjugate Dru Guevara MD Work Phone: [facility] 2005 hepatitis B vaccine, pediatric or pediatric/adolescent dosage Dru Guevara MD Work Phone: [facility] 2005 pneumococcal conjuga te vaccine, 13 valent Dru Guevara MD Work Phone: [facility] 2005 poliovirus vaccine, inactivated Dru Guevara MD Work Phone: [facility] 2005 hepatitis B vaccine, pediatric or pediatric/adolescent dosage Dru Guevara MD Work Phone: [facility] Payers Date Payer Category Payer Self-pay [id number] 2019 Medicaid [employer] [id number] 2019-Present [phone] [facility] [address] [place] [address] [id number] Medicaid [id number] 2019 Unknown [id number] 2005 Unknown [id number] 2003 Unknown [facility] [id number] 2003-Present [address] [place] [address] [id number] Unknown [id number] Unknown [id number] Social History Date Type Detail Facility Start: 08-01-2019 End: 03-08-2022 Tobacco smoking status [facility] Unknown if ever smoked [facility] Work Phone: Start: 2005 Sex Assigned At Male [facility] Start: 09-13-2022 End: 04-11-2025 Tobacco smoking status [facility] Smokes tobacco daily [facility] History of tobacco use Tobacco U se Types Packs/Day Years Used Date Smoking Tobacco: Every Day Vaping Passive Smoke Exposure: Never Smokeless Tobacco: Never [facility] Start: 09-13-2022 Tobacco use and exposure Smokeless tobacco non-user [facility] Start: 07-20-2023 End: 12-04-2023 Alcohol intake Not Asked [facility] Start: 07-20-2023 End: 12-04-2023 History of [address] function [facility] Start: 07-20-2023 End: 12-04-[address] [facility] Adolescent depressio n screening assessment 2 [facility] Start: 09-13-2022 Tobacco Comment outside [facility] Start: 2005 Sex Assigned At Not on file [facility] Tobacco smoking stat us [facility]IS Never smoked tobacco [facility] NEGATED: Highlighted rowStart: NINF History of tobacco use Passive smoker [facility] Clinical Notes 12-04-2023 to 04-11-2025 Telephone Encounter - Abel Samayoa - 12/05/2023 8:04 AM ESTTelephone Encounter - Al Giulia EVENTS ASSOCIATE.RASPBERRY CHECKER - 12/05/2023 7:14 AM Juana Osman EVENTS ASSOCIATE.RASPBERRY CHECKER - 12/04/2023 2:22 PM EST Note Date & Type Note Facility 04-11-2025 Radiology Diagnostic study note [facility] [address] [place] [address] Testicular with Arterial Flow MR#: [id number] Acct: [id number] Name: KUNAL ANDINO Rep #: [id number] : 2005 M 19 From: Misty Osorio MD PCP: Dr. Michael Gloria MD Status: PRE ER Study:Testicular with Arterial Flow Date of E xam: 04/11/25 Exam# [id number] Ordering Dr: Caleb Hancock MD PROCEDURE: TESTICULAR WITH ARTERIAL FLOW 04/11/2025 REASON FOR EXAM: BLUNT TRAUMA2 weeks ago. TECHNIQUE: Smith scale imaging and color and spectral Doppler analysis of the scrotal contents. COMPARISON: None. FINDINGS: RIGHT testicle: 4.3 x 3.8 x 2.6 cm Homogeneous echotexture. No intratesticular mass. Right epididymis: Unremarkable. LEFT testicle: 3.5 x 2.9 x 1.6 cm Homogeneous echotexture. No intratesticular mass. Left epididymis: Unremarkable. Other findings: Small right hydrocele and tiny varicocele. DOPPLER FINDINGS: Symmetric color doppler blood flow signal at both testes. Normal arterial inflow and venous outflow waveforms at both testes. US/Testicular with Arterial Flow IMPRESSION: Tiny right varicocele. Otherwise unremarkable scrotal ultrasound. Reading Location: [id number] CC: Dr. Trevor Hancock MD; Dr. Michael Gloria MD ~ Knifer Up: Signed [facility] 12-05-2023 Miscellaneous Notes Patient given results and verbalized understanding of instructions given. Abel Samayoa Negative for chlamydia, gonorrhea, and trichomonas. Please let him know. documented in this encounter [facility] 12-04-2023 Note HNO ID: [id number] Author: JUANA FRANCIS APRN.PAWAN Service: ? Author [...] MEDICAL HISTORY Diagnosis Date Pneumonia 11/2011 RMSF (Gerton spotted fever) 2010 PAST SURGICAL HISTORY Procedure [...] NAAT - TRICHOMONAS VAGINALIS NAAT Juana Francis APRN.RASPBERRY CHECKER [facility] 12-04-2023 History of Presen t illness Narrative [...] MEDICAL HISTORY Diagnosis Date Pneumonia 11/2011 RMSF (Gerton spotted fever) 2010 PAST SURGICAL HISTORY Procedure [...] - TRICHOMONAS VAGINALIS NAAT Juana Francis APRN.PAWAN documented in this encounter [facility] Evaluation note No assessment inform ation available [facility] Work Phone: Evaluation note Diagnosis Chronic abdominal pain Abdominal pain, unspecified site Recurrent vomiting Vomiting alone 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 Possible exposure to STD- Primary Other specified personal history presenting hazards to health [facility] instructions[facility] Instructions Call Dr. Weston's office at [facility] for follow-up regarding above. [facility] Work Phone: Reason for referral (narrative)* Referral (Routine) - Closed Specialty Diagnoses / Procedures Referred By Contac t Referred To Contact Radiology Diagnoses Anxiety state Chronic abdominal pain Recurrent vomiting Procedures FL Upper GI Without Air Without KUB CHG RADIOLOGIC EXAM [facility] GI TRC SINGLE CONTRAST [place]UDY [place] [address] Referral ID Status Reason Start Date Expiration Date Visits Re quested Visits Authorized [id number] Closed 07/20/2023 07/19/[address] [facility]No reason for referral information [facility] Work Phone: Reason for visit Narrative* Referral (Routine) - Closed Specialty Diagnoses / Procedures Referred By Contac t Referred To Contact Radiology Diagnoses Anxiety state Chronic abdominal pain Recurrent vomiting Procedures FL Upper GI Without Air Without KUB CHG RADIOLOGIC EXAM UPR GI TRC SINGLE CONTRAST [place]UDY [place] [address] Referral ID Status Reason Start Date Expiration Date Visits Re quested Visits Authorized [id number] Closed 07/20/2023 07/19/[address] [facility] Chief Complaint and Reason for Visit Chief Complaint HEMATOCHEZIA/ Melena Chief Complaint ABD PAIN Chief Complaint Admit Date TESTICULAR PAIN April 11, 2025 6:09 pm Advance Directives No Advanced Directives Records Found Advance Directive Response Recorded Date/ Time Living Will No March 15, 2016 8 :46pm Power of Real Estate Job Titles No March 15, 2016 8:46pm Advance Directive Response Recorded Date/ Time Do you have a Healthcare Power of Real Estate Job Titles? No April 11, 2025 7:37pm Summary Purpose Family History No Family History Records FoundNo Family History Records FoundNo Family History Records Found Additional Source Comments Goals (unrecognized section and content) Goals may be documented in a n alternate sectionGoals may be documented in an alternate sectionGoals may be documented in an alternate section Care Teams (unrecognized sec tion and content) Chemical Unit Operator Relationship Specialty Start Date End Date Michael Gloria MD PCP - General 01/06/20 Team Status: Active Member Role/Relationship Status Dates Dr. Michael Gloria MD Primary Care Provider Active Team Status: Inactive Member Role/Relationship Status Dates Dr. Michael Gloria MD Primary Care Provider Active Start: April 11, 2025 End: April 11, 2025 Dr. Bailey Portillo DO Emergency Provider Active S tart: April 11, 2025 End: April 11, 2025 Source Comments (unrecognize d section and content) In the event this informatio n is protected by the Federal Confidentiality of Alcohol and Drug Abuse Patient Records regulations: The Federal rules restrict any use of the information to criminally investigate or prosecute any alcohol or drug abuse patient.[facility] ClinicIn the event this information is protected by the Federal Confidentiality of Alcohol and Drug Abuse Patient Records regulations: The Federal rules restrict any use of the information to criminally investigate or prosecute any alcohol or drug abuse patient.[facility] Reason for Visit (unrecogniz ed section and content) Reason Comments STD Std testing, blood i n sperm, burning with urination x 6 months Reason Comments Results (unrecognized sect ion and content) No Status Records FoundNo Status Records FoundNo Status Records Found INFORMATION SOURCE (unrecogn ized section and content) DATE CREATED AUTHOR 12/05/2023 [facility] DATE CREATED AUTHOR AUTHOR'S ORGANIZ ATION 01/06/2025 [facility] DATE CREATED AUTHOR AUTHOR'S ORGANIZ ATION 04/19/2025 [facility] FOR RECORDS PERTAINING TO PATIENTS WHO ARE [...] BE BASED ON THE PRIMARY CLINICAL RECORDS. [employer] [facility]. provides no warranty or guarantee of the accuracy or completeness of information in this document.
[2025-06-07 16:59] VITALS: BP 124/81; PULSE 95; RESP 16; TEMP 36.8; O2SAT 98
== END 2025-06-07 17:01 | disposition home or self-care (01) ==
PROVIDERS: Emergency Provider Emergency Medicine; PCP Pediatrics; Visit Provider Emergency Medicine
DX: S90.32XA Contusion of left foot, initial encounter (principal); F17.290 Nicotine dependence, other tobacco product, uncomplicated; W20.8XXA Other cause of strike by thrown, projected or falling object, initial encounter
CPT/HCPCS: 73630; 99282

== ENCOUNTER 2025-08-23 20:50 | Emergency (ER) | payer MEDICAID, SELFPAY ==
[2025-08-23 20:51] VITALS: BP 106/74; PULSE 92; RESP 16; TEMP 36.4; O2SAT 97; BMI 21.4
--- OUTSIDE RECORDS SUMMARY | 2025-08-23 21:54 | XMS RPT_ITS | CCD ---
Author Organization [facility] Care Team Providers Care Painter Hand Name Role Phone Michael Gloria MD Primary Care Provider Unavailable Primary Care Provider Unavailabl e MICHAEL GLORIA Attending Unavailable MICHAEL GLORIA Primary Care Unavailable REFERRED, SELF Referring Unavailable Juani TAM, Dr. Cantor Primary Care Provider Dr. Bailey Portillo DO Emergency Provider [phone] Dr. Bailey Portillo DO Attending Provider Dr. Yrn Kapadia DO Emergency Provider Peyman Rivera Attending Unavailable Michael Gloria Primary Care Unavailable Bailey Portillo Attending Unavailable Michael Gloria Primary Care Unavailable Michael Gloria Primary Care Unavailable Yrn Kapadia Attending Unavailable Medications Current Medications Medication Drug Class(es) [...] Active doxycycline monohydrate 100 mg oral capsule (3 sources) Tetracycline-class Drug Start: 03-08-2022 take 1 [...] Start: 02-23-2023 take [address] [facility] once daily FLUoxetine (PROZAC) 20 MG capsule Take 1 Capsule (20 mg) by mouth daily 30 Capsule 2 02/23/2023 Active hydrOXYzine pamoate 25 mg oral capsule (3 sources) Antihistamine Start: 03-08-2022 take 1 capsule [...] Comment on above: [facility] hours as needed. sod bicarb-citric ac-simeth (E-Z-GAS II) contrast 4 g (1 source) Start: 08-07-2023 End: 08-07-2023 sod bicarb-citric ac-simeth (E-Z-GAS II) contrast 4 g Problems Problem Classification Problem Date Documented Date Episodic/Chronic Abdominal pain (2 sources) Chronic abdominal pain; Translations: [Unspecified abdominal pain] Onset: 07-20-2023 08-07-2023 Episodic Anxiety disorders (4 sources) Anxiety state; Translations: [Generalized anxiety disorder] Onset: 01-03-2025 08-07-2023 Chronic Coma; stupor; and brain damage (3 sources) Drowsy; Translations: [Somnolence] 03-16-2022 Episodic Fever of unknown origin (4 sources) Disorder characterized by fever; Translations: [Fever, unspecified] 03-15-2016 Episodic Fracture of upper limb (4 sources) Closed fracture of fifth metacarpal; Translations: [...] 07-20-2023 08-07-2023 Episodic Other male genital disorders (3 sources) Male erectile dysfunction, unspecified; Translations: [Erectile dysfunction] Onset: 04-16-2025 04-11-2025 Chronic Poisoning by nonmedicinal substances (1 source) 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; Translations: [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] Onset: 07-20-2023 07-24-2023 Episodic Screening and history of mental health and substance abuse codes (3 sources) Patient condition resolved; Translations: [Personal history of other mental and behavioral disorders] 03-16-2022 Episodic Sprains and strains (8 sources) Sprain of ankle; Translations: [Sprain of unspecified ligament of right ankle, initial encounter] 02-28-2019 Episodic Substance-related disorders (3 sources) Polysubstance abuse ; Translations: [Other psychoactive substance abuse, uncomplicated] 03-16-2022 Chronic Substance-related disorders (2 sources) LSD (lysergic acid diethylamide) reaction; Translations: [Hallucinogen use, unspecified, uncomplicated] 12-01-2024 Episodic Superficial injury; contusion (7 sources) Contusion of hand; Translations: [Contusion of right hand, initial encounter] Onset: 06-12-2025 08-14-2018 Episodic Results Test Name Value Interpretation Reference Range Duarte ity Emergency Department Summary on 06-07-2025 Emergency Department Summary [facility] Medical Records Department [address] [place] [address] Emergency Department Summary 06/07/25 MR#: [id number] Acct: [id number] Name: KUNAL AGUILAR Rep #: [id number] : 2005 19 From: Yrn Kapadia DO PCP: Dr. Michael Gloria MD Status:REG ER Location: ED HPI History of Present Illness Chief Complaint: Lower Extremity Injury [facility] Medical History Anxiety Home Medications ???Medication ???Instructions ???Recorded ???Last Taken ???Type doxycycline monohydrate 100 mg 100 mg PO BID 03/08/22 Unknown His tory capsule hydroxyzine pamoate 25 mg capsule 25 mg PO TID PRN PRN Anxiety 02/14 02/04 Unknown History Allergy/AdvReac Type Severity Reaction Status Date / Time No Known Allergies Allergy Verified 06/07/25 14:04 Social History Smoking Status: Current every day smoker tobacco type: e-cigarettes alcohol intake: never EXAM Physical Exam Const Vital Signs: 06/07/25 14:04 Temperature 98.2 F Temperature Source Oral Pulse Rate 113 H Respiratory Rate 16 Blood Pressure 124/81 H Blood Pressure Mean 95 Pulse Ox 98 Oxygen Delivery Method Room Air MDM MDM MDM Narrative Medical decision making narrative: HISTORY OF PRESENT ILLNESS: Chief complaint: Left foot pain 19-year-old male presents left foot pain after a cement block fell on it. REVIEW OF SYSTEMS: Pertinent positives: Left foot pain Pertinent negatives: Loss of sensation PHYSICAL EXAM: Nursing triage notes reviewed, Vital signs reviewed Constitutional: please see mdm Extremities: No edema, compartments are soft Neuro: Intact sensation L1-S1 dermatomal distributions. Intact 5/5 strength in hip flexion (T12- L3). Knee extension (L2-L4). Ankle dorsiflexion (L4-L5). Ankle plantar flexion (S1). Great toe extension (L5). 2+ patellar and Achilles DTRs. Skin: Slight erythema noted to the dorsum of the foot. No sign of laceration open fracture. MEDICAL DECISION MAKING: Chief Complaint: please see HPI External records reviewed: [Reviewed prior imaging studies Factors affecting care: none Social determinants of health: none History obtained from others: none Consults: none MDM Narrative: Patient was initially hemodynamically stable, afebrile and nontoxic-appearing. Exam with neurovascular intact left lower extremity. I considered the following differential diagnosis: Foot fracture, dislocation, contusion I obtained an x-ray to further determine if the patient was suffering from a life-threatening etiology. Initially treated with ibuprofen and ice ALL IMAGES (IF OBTAINED) HAVE BEEN PERSONALLY REVIEWED AND INTERPRETED BY MYSELF. X-ray was interpreted personally by myself showed no evidence of obvious fracture or dislocation. The patient and/or family, caregivers express understanding. The patient and/or family, caregivers agrees with the plan. Shared decision making: I will have a discussion with the patient and or visitors regarding risk/benefits of further testing or admission. They will be made aware of of the risk/benefits inherent in this decision they will be given the opportunity to voice understanding. Total critical care time today provided was at least 0 minutes. This excludes separately billable procedures. Critical care time (if documented) is secondary to the patient having high probability of clinically significant/life threatening deterioration in the patient's condition which required my urgent intervention. Impression: 1. Acute foot pain 2. Acute foot contusion Dispo: Discharge home This note was generated with [employer] dictation software. It may contain incorrect words, spelling, and punctuation that were not noted in review of the chart prior to signing. Radiography Diagnostic Testing: Clinical Impression(s) from Imaging Studies Foot X-Ray 06/07/25 15:25 IMPRESSION: No fracture appreciated. If clinical suspicion remains high, conservative treatment and follow-up in x-ray in 2 weeks. If clinically indicated, consider CT exam Reading [facility] Discharge Plan Triage Chief Complaint: Lower Extremity Injury ED Provider: Yrn Kapadia Dx/Rx/DC Orders Prescriptions: No Action doxycycline monohydrate 100 mg capsule 100 mg PO BID hydroxyzine pamoate 25 mg capsule 25 mg PO TID PRN PRN (Reason: Anxiety) Primary Care Provider: Michael Gloria Referrals: Michael Gloria MD [Primary Care Provider] - Print Language: Nicaraguan What to do if you have Problems For any increased pain, shortness of breath, bleeding, nausea or vomiting, (more content not included)... Normal [facility] Foot min 3 Viewson Foot min 3 Views [facility] Imaging Services [address] [place] [address] Foot min 3 Views MR#: [id number] Acct: [id number] Name: KUNAL AGUILAR Rep #: [id number] : 2005 M 19 From: Sravan Rodriguez DO PCP: Dr. Michael Gloria MD Status: PRE ER Study: Foot min 3 Views Date of Exam: 06/07/25 Exam# [id number] Ordering Dr: Yrn Kapadia DO PROCEDURE: FOOT MIN 3 VIEWS 06/07/2025 REASON FOR EXAM: PAIN ,SWELLING TRAUMA FROM CONCRETE BLOCK. Initial encounter. TECHNIQUE: FOOT MIN 3 VIEWS Laterality: Left foot COMPARISON: None. FINDINGS: Bones: No fracture, no dislocation. Joints: No significant osteoarthritis Soft tissues: no significant swelling appreciated. Other: RAD/Foot min 3 Views IMPRESSION: No fracture appreciated. If clinical suspicion remains high, conservative treatment and follow-up in x-ray in 2 weeks. If clinically indicated, consider CT exam Reading Location: [facility] CC: Dr. Yrn Kapadia DO; Dr. Michael Gloria MD Terrazzo Laborer: Signed Normal [facility] Emergency Department Summary on 04-11-2025 Emergency Department Summary [facility] Medical Records Department [address] [place] [address] Emergency Department Summary 04/11/25 MR#: [id number] Acct: [id number] Name: KUNAL AGUILAR Rep #: [id number] : 2005 19 From: Bailey Portillo DO [...] or sweats. Denies dysuria urgency or frequency. [facility] Medical History Anxiety Home Medications [...] no sensory (more content not included)... Normal [facility] Testicular with Arterial Steven won 04-11-2025 Testicular with Arterial Flow [facility] Imaging Services [address] [place] [address] Testicular with Arterial Flow MR#: [id number] Acct: [id number] Name: KUNAL AGUILAR Rep #: [id number] : 2005 M 19 From: Xi Shaw nd, MD PCP: Dr. Michael Gloria MD Status: PRE ER Study: Testicular with Arterial Flow Date of Exam: Exam# [id number] Ordering Dr: Trevor Hancock MD PROCEDURE: TESTICULAR [...] varicocele. Otherwise unremarkable scrotal ultrasound. Reading Location: [facility] CC: Dr. Trevor Hancock MD; Dr. Michael Gloria MD Terrazzo Laborer: Signed Normal [facility] Progress Noteon 01-03-2025 Rigger Third Authentication Interface Message Text Patient ID: Kunal Aguilar is a 19 y.o. male. His chief [...] neurofibroma?? Subjective HPI Comments: [place] [facility] at [facility] (was at [facility]) Seen every other week Was seeing Dr. West for depression and prescribed fluoxetine Seen in [place] for light wave therapy and seems to help--> once weekly--> neurofeedback Not eating well, sleep has been erratic, feeling bad about self/ worthless, Lam[place]re screen completed Depression Primary Care Review of [...] air entry. Neurological: He is alert. Normal [facility] Emergency Department Summary on 11-23-2024 Emergency Department Summary [facility] Medical Records Department [address] [place] [address] Emergency Department Summary 11/23/24 MR#: [id number] Acct: [id number] Name: KUNAL AGUILAR Rep #: [id number] : 2005 19 From: Antonette DUNAWAY PCP: Dr. Michael Gloria MD Status:DEP ER Location: ED HPI History of Present Illness Chief Complaint: Anxiety Narrative Narrative: Patient presenting today with his mom due to concerns for anxiety after taking half a tab of acid about 30 minutes prior to arrival. He reports that the person he brought the LSD from told him it was," triple dipped" and stronger than usual. He has done acid in the past and has had a similar reaction. He denies any other substance use. He denies hallucinations but reports that his vision is starting to look wavy. He denies HI and SI. [facility] Medical History Anxiety Home Medications [...] but reports that his vision is getting, "wavy". He reports feeling very anxious. Patient was [...] He declined. (more content not included)... Normal [facility] 12-05-2023 [facility] Telephone ([facility]) KUNAL AGUILAR ([id number]) 5 M Date Time Provider Department 12/05/23 GIULIA CUNHA [facility] During your visit today, we recorded the following information about you: Giulia Cunha APRN.PAWAN 12/05/2023 7:16 AM Signed Negative for chlamydia, gonorrhea, and trichomonas. Please let him know. Abel [place] 12/05/2023 8:04 AM Signed Patient given results and verbalized understanding of instructions given. Abel [place] Allergies As of Date: 12/05/2023 (No Known Allergies) Date Reviewed: 12/04/2023 Reviewed by: Junaa Francis APRN.[facility] - Fully Assessed Reason for Visit: Results [...] Status:Closed by ABEL BREWER on 12/05/23 Normal [facility] C. trachomatis+N. gonorrhoea e DNA GEORGI+probe Ql (Unsp spec)on 12-04-2023 C. trachomatis rRNA GEORGI+probe Ql (Unsp spec) Negative Normal Negative for Chlamydia trachomatis by amplificaton [facility] Comment on above: Order Comment: Speci men Type: URINE SPECIMEN Ordering Facility: [facility] Address: [address] [place] [address] Performed By: #### T RVAMP, 04408-9 #### [facility] CLIA [id number] [address] [place] [address] [place] N. gonorrhoeae rRNA GEORGI+probe Ql (Unsp spec) Negative Normal Negative for Neisseria gonorrhoeae by amplification [facility] Comment on above: Order Comment: Speci men Type: URINE SPECIMEN Ordering Facility: [facility] Address: [address] [place] [address] Performed By: #### T RVAMP, 25430-1 #### [facility] CLIA [id number] [address] [place] [address] [place] CNOVon 12-04-2023 CNOV Office Visit ([facility]) KUNAL AGUILAR ([id number]) [birth year] M Date Time Provider Department 12/04/23 1:30 PM JUANA FRANCIS [facility] During your visit today, we recorded the following information about you: Temperature Pulse Respiration Blood pressure 99 degrees 118/minute 21/minute 118/88 Weight 70.7 kg Juana Francis APRN.CNP 12/04/2023 2:46 PM Signed Subjective HPI HPI Kunal Aguilar is a 18 year old male who presents today for CC of burning with urination and blood in semen. This started bad for few weeks. Has tried nothing for relief. Symptoms are worsened by nothing. Current sexual partner stated she may have "something" no elaboration. Denies testicular pain, gu lesion, penile drainage.Reports otherwise feeling well. 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 #:[id number] GONORRHEA/CHLAMYDIA NAAT [SQGCCT] Order #: [id number]. #:[id number] Prescriptions as of 12/04/2023 - ondansetron (ZOFRAN) 4 mg tablet Take 1 tablet by mouth every 8 hours as needed. - albuterol 90 mcg/actuation Aero Inhale 2 Puffs as instructed every 4 hours as needed. ( ADAM: Ventolin with dose counter) Problem List As Of Date: 12/04/2023 (None) Encounter Status:Closed by JUANA FRANCIS on 12/04/23 Normal [facility] TRICHOMONAS VAGINALIS NAATon 12-04-2023 T. vaginalis DNA GEORGI+probe Ql (Unsp spec) Negative Normal Negative for Trichomonas vaginalis by amplification [facility] Comment on above: Order Comment: Speci men Type: URINE SPECIMEN Ordering Facility: [facility] Address: [address] [place] [address] Performed By: #### T RVAMP, [id number] #### [facility] CLIA [id number] [address] [place] [address] [place] [address] [place] RF Gastrointestinal tract [...] mouth. COMPARISON: None FINDINGS: The limited fluoroscopic frit maker image shows bowel gas present in a nonobstructive pattern. ESOPHAGUS: The esophagus is normal in contour, caliber and motility. STOMACH: Normal with no gastric outlet obstruction. DUODENUM: The bulb and C-loop appear normal. The duodenojejunal junction is normal in position. GASTROESOPHAGEAL REFLUX: A few trace episodes of gastroesophageal reflux was seen into the distal esophagus. [facility] RADIOLOGY Khris Up MD - 08/07/2023 CLINICAL HISTORY: Recurrent vomiting. TECHNIQUE: Low-dose fluoroscopy (3 frames/sec) was used for evaluation of the upper GI tract. Fluoroscopy time: 3 minutes Estimated Dose area product: 857.2 uGy-m2. Contrast: 150 mL Barium by mouth. COMPARISON: None FINDINGS: The limited fluoroscopic frit maker image shows bowel gas present in a [...] has been created using voice recognition software [facility] Radiology Study observation (narrative) [facility] RF Gastrointestinal tract up per Views W air contrast PO and W barium contrast POOrdered By: hKris Up on 08-07-2023 [facility] Work Phone: Absolute lymphocyte counton 02-16-2022 Lymphocytes Auto (Unsp spec) [#/Vol] 2.47 10*3/uL 0.83-4.51 [facility] Work Phone: Basophil percentageon 2021 Basophils/100 WBC (Bld) 0.3 % 0-1 [facility] Work Phone: Bilirubin [Mass/Vol] 0.30 mg/dL 0.20-1.00 [facility] Work Phone: Comment on above: For patients on eltr ombopag therapy, use of Dimension [place] TBIL is not recommended. Chloride [Moles/Vol] 103 mmol/L 98-107 [facility] Work Phone: [phone] Eosinophils/100 WBC (Bld) 0.6 % 0-3 [facility] Work Phone: [phone] Glucose [Mass/Vol] 88 mg/dL 74-106 [facility] Work Phone: [phone] Neutrophils (Bld) [#/Vol] 6.1 10*3/uL 2.0-7.7 [facility] Work Phone: [phone] Neutrophils/100 WBC (Bld) 65.8 % 34-64 [facility] Work Phone: [phone] Potassium [Moles/Vol] 3.7 mmol/L 3.5-5.1 [facility] Work Phone: Protein [Mass/Vol] 8.5 g/dL 6.4-8.2 [facility] Work Phone: [phone] Sodium [Moles/Vol] 138 mmol/L 136-145 [facility] Work Phone: WBC (Bld) [#/Vol] 9.3 10*3/uL 4.5-13.0 [facility] Work Phone: Blood erythrocytes count (nu mber/volume)on 02-16-2022 RBC (Bld) [#/Vol] 5.33 10*6/uL 4.5-5.1 [facility] Work Phone: [phone] Blood hemoglobin measurement (mass/volume)on 02-16-2022 Hemoglobin (Bld) [Mass/Vol] 15.3 g/dL 13.0-16.5 [facility] Work Phone: [phone] Blood lymphocytes/100 leukoc yteson 02-16-2022 Lymphocytes/100 WBC (Bld) 26.7 % 25-45 [facility] Work Phone: Blood monocytes/100 leukocyt eson 02-16-2022 Monocytes/100 WBC (Bld) 6.1 % 3-6 [facility] Work Phone: Blood platelet mean volumeon 02-16-2022 Platelet mean volume (Bld) [Entitic vol] 10.3 fL 6.2-12.0 [facility] Work Phone: Determination of erythrocyte mean corpuscular volume (MCV)on 02-16-2022 MCV (RBC) [Entitic vol] 88.7 fL 78-96 [facility] Work Phone: Hematocrit Auto (Bld) [Volum e fraction]on 02-16-2022 Hematocrit (Bld) [Volume fraction] 47.3 % 36-47 [facility] Work Phone: Laboratory - Chemistry and C hemistry - challengeon 02-16-2022 ALP [Catalytic activity/Vol] 70 U/L 52-171 [facility] Work Phone: ALT [Catalytic activity/Vol] 31 U/L 16-61 [facility] Work Phone: CO2 [Moles/Vol] 26.0 mmol/L 21.0-32.0 [facility] Work Phone: Globulin (S) [Mass/Vol] 3.9 g/dL 2.2-4.2 [facility] Work Phone: Urea nitrogen/Creatinine [Mass ratio] 20.3 mg/mg 10-20 [facility] Work Phone: Laboratory - Hematology and Cell countson 02-16-2022 Erythrocyte distribution width (RBC) [Entitic vol] 41.3 fL 35.1-43.9 [facility] Work Phone: Erythrocyte distribution width (RBC) [Ratio] 12.7 % 11.6-14.6 [facility] Work Phone: Immature granulocytes/100 WBC (Bld) 0.500 % 0.0-0.9 [facility] Work Phone: Comment on above: IG% - Immature Granu locytes (promyelocytes, myelocytes and metamyelocytes) > 1% indicates that a LEFT SHIFT is Present. MCH (RBC) [Entitic mass] 28.7 pg 25.0-35.0 [facility] Work Phone: Nucleated RBC/100 WBC (Bld) [Ratio] 0 % 0-5 [facility] Work Phone: MCHC Auto (RBC) [Mass/Vol]on 02-16-2022 MCHC (RBC) [Mass/Vol] 32.3 g/dL 32-36 [facility] Work Phone: No Panel Informationon 02-16 Estimated GFR (MDRD) er [facility] Work Phone: Comment on above: Test not performedAf rican Yemeni GFR Calc Estimated GFR (MDRD) Non-Af [facility] Work Phone: Comment on above: Test not performedNo n- GFR Calc Platelets bldon 02-16-2022 Platelets (Bld) [#/Vol] 275 10*3/uL 150-450 [facility] Work Phone: Serum or plasma C reactive p rotein measurement (mass/volume)on 02-16-2022 CRP [Mass/Vol] mg/L 0.0-3.0 [facility] Work Phone: Comment on above: C-Reactive Protein ( CRP) provides useful information for thediagnosis, therapy and monitoring of inflammatory processesand associated diseases. For the evaluation of Relative Riskfor Cardiovascular Disease, a High Sensitivity CRP (HSCRP)should be ordered. Serum or plasma IgA measurem ent (mass/volume)on 02-16-2022 IgA [Mass/Vol] 283 mg/dL [facility] Work Phone: Comment on above: Performed at: [address] [id number] Director: Kahlil Mars PhD, Phone: [phone] Serum or plasma albumin mahesh urement (mass/volume)on 02-16-2022 Albumin [Mass/Vol] 4.6 g/dL 3.2-5.0 [facility] Work Phone: Serum or plasma albumin/glob ulin mass ratioon 02-16-2022 Albumin/Globulin [Mass ratio] 1.2 {ratio} 0.9-2.4 [facility] Work Phone: Serum or plasma calcium mahesh urement (mass/volume)on 02-16-2022 Calcium [Mass/Vol] 9.4 mg/dL 8.5-10.1 [facility] Work Phone: Serum or plasma creatinine m easurement (mass/volume)on 02-16-2022 Creatinine [Mass/Vol] 0.84 mg/dL 0.70-1.30 [facility] Work Phone: Comment on above: The validity of the calculated GFR & GFRAA in patients over 70 years has not been determined. Clinical correlation is essential. Serum or plasma urea nitroge n measurement (mass/volume)on 02-16-2022 Urea nitrogen [Mass/Vol] 17 mg/dL 7-18 [facility] Work Phone: Serum tissue transglutaminas e IgA antibody assay (units/volume)on 02-16-2022 tTG IgA Qn (S) <2 U/mL [facility] Work Phone: Comment on above: Negative 0 - 3 Weak Positive 4 - 10 Positive >10 Tissue Transglutaminase (tTG) has been identified as the endomysial antigen. Studies have demonstr- ated that endomysial IgA antibodies have over 99% specificity for gluten sensitive enteropathy. Thin prep Papanicolaou smear with manual screeningon 02-16-2022 Thin prep Papanicolaou smear with manual screening 19 U/L 15-37 [facility] Work Phone: Thin prep Papanicolaou smear with manual screening 9 5-15 [facility] Work Phone: Vital Signs Date Time Vital Sign Value Performing Clinician Faci lity 06-07-2025 16:59-0400 Body temperature 98.2 [degF] Dr. Michael Gloria MD Work Phone: [phone] [place] [address] 06-07-2025 16:59-0400 Diastolic blood pressure 81 mm[Hg] Dr. Michael Gloria MD Work Phone: [phone] [place] [address] 06-07-2025 16:59-0400 Heart rate 95 /min Dr. Michael Gloria MD Work Phone: 0(911)383-096696 [place] [address] 06-07-2025 16:59-0400 Respiratory rate 16 /min Dr. Michael Gloria MD Work Phone: 9(460)920-977396 [place] [address] 06-07-2025 16:59-0400 SaO2% (BldA) [Mass fraction] 98 % Dr. Michael Gloria MD Work Phone: 4(932)744-564096 [place] [address] 06-07-2025 16:59-0400 Systolic blood pressure 124 mm[Hg] Dr. Michael Gloria MD Work Phone: 1(538)543-354596 [place] [address] 06-07-2025 14:04-0400 Body height 177.[address] Michael Gloria MD Work Phone: 1(088)355-377496 [place] [address] 06-07-2025 14:04-0400 Body mass index (BMI) [Percentile] Per age and sex 51 % Dr. Michael Gloria MD Work Phone: 0(830)772-881496 [place] [address] 06-07-2025 14:04-0400 Body mass index (BMI) [Ratio] 22.9 kg/m2 Dr. Michael Gloria MD Work Phone: 5(474)560-772396 [place] [address] 06-07-2025 14:04-0400 Body weight 72.[address] Michael Gloria MD Work Phone: 0(855)064-593096 [place] [address] 04-11-2025 20:10-0400 Body temperature 98 [degF] Dr. Michael Gloria MD Work Phone: 8(527)495-785096 [place] [address] 04-11-2025 20:10-0400 Diastolic blood pressure 65 mm[Hg] Dr. Michael Gloria MD Work Phone: 3(754)174-929896 [place] [address] 04-11-2025 20:10-0400 Heart rate 75 /min Dr. Michael Gloria MD Work Phone: 4(530)886-700362 [place] [address] 04-11-2025 20:10-0400 Respiratory rate 18 /min Dr. Michael Gloria MD Work Phone: 6(451)727-015862 [place] [address] 04-11-2025 20:10-0400 SaO2% (BldA) [Mass fraction] 98 % Dr. Michael Gloria MD Work Phone: 0(785)721-164562 [place] [address] 04-11-2025 20:10-0400 Systolic blood pressure 110 mm[Hg] Dr. Michael Gloria MD Work Phone: 0(333)611-661926 [address] 04-11-2025 19:35-0400 Body height 177.[address] Michael Gloria MD Work Phone: 2(781)358-295626 [address] 04-11-2025 19:35-0400 Body mass index (BMI) [Percentile] Per age and sex 41.3 % Dr. Michael Gloria MD Work Phone: 8(780)449-620226 [address] 04-11-2025 19:35-0400 Body mass index (BMI) [Ratio] 22.1 kg/m2 Dr. Michael Gloria MD Work Phone: 1(269)529-794326 [address] 04-11-2025 19:35-0400 Body weight 70.[address] Michael Gloria MD Work Phone: 8(493)817-693862 [place] [address] 12-04-2023 14:03-0500 Body temperature 99 [degF] Juana Francis APRN.HARBOUR MASTER Work Phone: [facility] 12-04-2023 14:03-0500 Body weight 70.67 kg Juana Francis APRN.HARBOUR MASTER Work Phone: [facility] 12-04-2023 14:03-0500 Diastolic blood pressure 88 mm[Hg] Juana Francis APRN.HARBOUR MASTER Work Phone: [facility] 12-04-2023 14:03-0500 Heart rate 118 /min Juana Farncis APRN.HARBOUR MASTER Work Phone: [facility] 12-04-2023 14:03-0500 Respiratory rate 21 /min Juana King ZENIAHARBOUR MASTER Work Phone: [facility] 12-04-2023 14:03-0500 SaO2% (BldA) [Mass fraction] 98 % Juana King HARBOUR MASTER Work Phone: [facility] 12-04-2023 14:03-0500 Systolic blood pressure 118 mm[Hg] Juana King ZENIAHARBOUR MASTER Work Phone: [facility] 02-15-2022 16:03-0400 Body height 137.16 cm [facility] Work Phone: Encounters Encounter Date Encounter Type Care Provider Facility Start: 06-07-2025 End: 06-07-2025 Emergency department patient visit Dr. Michael Gloria MD Work Phone: -Emergency Department Work Phone: Start: 04-11-2025 End: 04-11-2025 Emergency department patient visit Dr. Michael Gloria MD Work Phone: -Emergency Department Work Phone: Start: 01-03-2025 End: 01-03-2025 ambulatory MICHAEL GLORIA [facility] Start: 11-23-2024 End: 11-23-2024 Emergency department patient visit [facility] Facility:[facility] Start: 12-05-2023 Telephone encounter Giulia Cunha HARBOUR MASTER Work Phone: [facility] Comment on above: Results Start: 12-04-2023 End: 12-04-2023 ambulatory Facility:[facility] Start: 12-04-2023 End: 12-04-2023 Patient encounter procedure Juana King ZENIAHARBOUR MASTER Work Phone: [facility] Comment on above: Possible exposure to STD (Primary Dx) Start: 08-07-2023 End: 08-07-2023 Subsequent hospital visit by physician Dru Guveara MD Work Phone: Radiology Comment on above: Anxiety state; Chronic abdominal pain; Recurrent vomiting Start: 07-23-2022 End: 07-23-2022 ambulatory [facility] Work Phone: Start: 07-23-2022 End: 07-23-2022 Patient encounter procedure [facility]-Ultrasound, [facility] Start: 02-16-2022 End: 02-16-2022 Patient encounter procedure [facility]-Laboratory, [place] Procedures Date Procedure Procedure Detail Performing Clinician Start: 06-07-2025 X-ray of foot, three or more views Dr. Michael Gloria MD Work Phone: Start: 04-11-2025 Ultrasound of scrotu m with [...] Pertussis Vaccines (7 - Td or Tdap) [facility] Start: 05-24-2028 Urine microalbumin profile DTaP,Tdap,Td Vaccine (7 - Td or Tdap) [facility] Start: 06-07-2025 [facility] Start: 04-11-2025 [facility] Start: 12-04-2023 End: 03-04-2024 Chlamydia trachomatis+Neisseria gonorrhoeae DNA [Presence] in Unspecified specimen by GEORGI with probe detection [facility] Work Phone: Comment on above: Expected: 12/04/2023 , Expires: 03/04/2024 Start: 2023 Hepatitis C screening Hepatitis C [facility] Start: 2023 HIV screening HIV Screening [facility] Start: 10-16-2023 Depression Assessment Depression Ass [facility] Start: 09-06-2023 End: 09-06-2023 Admission to same day surgery center 09/06/2023 10:38 AM EST - 09/06/2023 11:05 AM EST Surgery [facility] [place], [place] [id number] Dru Guevara MD [place], [place] [id number] Endoscopy Upper (Flexible) with biopsies and disaccharidases [facility] Comment on above: Endoscopy Upper (Fle xible) with biopsies and disaccharidases Start: 09-06-2023 End: 09-06-2023 Endoscopy Upper (Flexible) Endoscopy Upper (Flexible) Chronic abdominal pain Recurrent vomiting 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 09/06/2023 10:38 AM EST [facility] Start: 09-06-2023 Subsequent hospital visit by physician 09/06/2023 10:38 AM EST Hospital Encounter [facility] [place], [place] [id number] Dru Guevara MD [place], [place] [id number] [facility] Start: 06-16-2023 FLU (#1) FLU (#1) [facility] Start: 06-16-2023 Influenza vaccination Influenza Vacc ine (#1) [facility] Start: 2021 MenACWY (2 - 2-dose series) MenACWY (2 - 2-dose series) [facility] Start: 2021 MenB (1 of 2 - MenB 2-Dose Series Bexsero) MenB (1 of 2 - MenB 2-Dose Series Bexsero) [facility] Start: 2021 Meningococcal B Vacc ine: Consider Based On Risk (1 of 2 - Patient Seeks Protection) Meningococcal B Vaccine: Consider Based On Risk (1 of 2 - Patient Seeks Protection) [facility] Start: 2021 Meningococcal Conjug ate Vaccine (2 - 2-dose series) Meningococcal Conjugate Vaccine (2 - 2-dose series) [facility] Start: 07-08-2021 Well Visit Well Visit [facility] Start: 2020 Hearing Screening Hearing Screening [facility] Start: 2020 PATH Education 15-17 + Years PATH Education 15-17+ Years [facility] Start: 2020 Vision Screening Vision Screening [facility] Start: 2019 Peds To Adult Transi tion Annual Assessment Peds To Adult Transition Annual Assessment [facility] Start: 2017 PATH Education 12-14 + Years PATH Education 12-14+ Years [facility] Start: 2017 PATH Transitional Assessment PATH Transitional Assessment [facility] Start: 2017 Peds To Adult Transi tion Initial Discussion Peds To Adult Transition Initial Discussion [facility] Start: 2016 HPV (1 - Male 2-dose series) HPV (1 - Male 2-dose series) [facility] Start: 2014 HPV Vaccine (1 - Mal e 2-dose series) HPV Vaccine (1 - Male 2-dose series) [facility] Start: 03-09-2010 Varicella (2 of 2 - 2-dose childhood series) Varicella (2 of 2 - 2-dose childhood series) [facility] Start: 2006 Hepatitis A (1 of 2 - 2-dose series) Hepatitis A (1 of 2 - 2-dose series) [facility] Start: 04-20-2006 COVID-19 (#1) COVID-19 (#1) [facility] Start: 04-20-2006 Covid-19 Vaccine (#1) Covid-19 Vacci ne (#1) [facility] Patient Education [facility] Work Phone: TRICHOMONAS VAGINALI S NAAT TRICHOMONAS VAGINALIS NAAT Lab Routine Possible exposure to STD 12/04/2023 2:32 PM EST [facility] Work Phone: Immunizations Immunization Date Immunization Notes Care Provider Fa cility 05-24-2018 meningococcal polysaccharide (groups A, C, Y and W-135) diphtheria toxoid conjugate vaccine (MCV4P) Dru Guevara MD Work Phone: [facility] 05-24-2018 tetanus toxoid, redu salo diphtheria toxoid, and acellular pertussis vaccine, adsorbed Dru Guevara MD Work Phone: [facility] 02-09-2010 diphtheria, tetanus toxoids and acellular pertussis vaccine Dru Guevara MD Work Phone: [facility] 02-09-2010 measles, mumps and rubella virus vaccine Dru Guevara MD Work Phone: [facility] 02-09-2010 poliovirus vaccine, inactivated Dru Guevara MD Work Phone: [facility] 02-14-2007 diphtheria, tetanus toxoids and acellular pertussis vaccine Dru Guevara MD Work Phone: [facility] 02-14-2007 measles, mumps and rubella virus vaccine Dru Guevara MD Work Phone: [facility] 02-14-2007 varicella virus vaccine Anupam Guevara MD Work Phone: [facility] 11-15-2006 haemophilus influenz ae type b vaccine, PRP-T conjugate Dru Guevara MD Work Phone: [facility] 11-15-2006 pneumococcal conjuga te vaccine, 13 valent Dru Guevara MD Work Phone: [facility] 05-08-2006 diphtheria, tetanus toxoids and acellular pertussis vaccine Dru Guevara MD Work Phone: [facility] 05-08-2006 hepatitis B vaccine, pediatric or pediatric/adolescent dosage Dru Guevara MD Work Phone: [facility] 05-08-2006 pneumococcal conjuga te vaccine, 13 valent Dru Guevara MD Work Phone: [facility] 05-08-2006 poliovirus vaccine, inactivated Dru Guevara MD Work Phone: [facility] 03-07-2006 diphtheria, tetanus toxoids and acellular pertussis vaccine Dru Guevara MD Work Phone: [facility] 03-07-2006 haemophilus influenz ae type b vaccine, PRP-T conjugate Dru Guevara MD Work Phone: [facility] 03-07-2006 pneumococcal conjuga te vaccine, 13 valent Dru Guevara MD Work Phone: [facility] 03-07-2006 poliovirus vaccine, inactivated Dru Guevara MD Work Phone: [facility] 2005 diphtheria, tetanus toxoids and acellular pertussis vaccine Dru Guevara MD Work Phone: [facility] 2005 haemophilus influenz ae type b vaccine, PRP-T conjugate Dru Guevara MD Work Phone: [facility] 2005 hepatitis B vaccine, pediatric or pediatric/adolescent dosage Dru Guevara MD Work Phone: [facility] 2005 pneumococcal conjuga te vaccine, 13 valent Dru Guevara MD Work Phone: [facility] 2005 poliovirus vaccine, inactivated Dru Guevara MD Work Phone: [facility] 2005 hepatitis B vaccine, pediatric or pediatric/adolescent dosage Dru Guevara MD Work Phone: [facility] Payers Date Payer Category Payer Self-pay [id number] 2019 Medicaid [employer] [id number] 2019-Present [phone] [place] [id number] Medicaid [id number] 2019 Unknown [id number] 2005 Unknown [id number] 2003 Unknown [employer] [facility] [id number] 2003-Present [address] [place] [address] [id number] Unknown [id number] Unknown [id number] Unknown [id number] Social History Date Type Detail Facility Start: 08-01-2019 End: 03-08-2022 Tobacco smoking status MOIS Unknown if ever smoked [facility] Work Phone: Start: 2005 Sex Assigned At Male [facility] Start: 09-13-2022 End: 06-07-2025 Tobacco smoking status NHIS Smokes tobacco daily [facility] History of tobacco use Tobacco U se Types Packs/Day Years Used Date Smoking Tobacco: Every Day Vaping Passive Smoke Exposure: Never Smokeless Tobacco: Never [facility] Start: 09-13-2022 Tobacco use and exposure Smokeless tobacco non-user [facility] Start: 07-20-2023 End: 12-04-2023 Alcohol intake Not Asked [facility] Start: 07-20-2023 End: 12-04-2023 History of Social function [facility] Start: 07-20-2023 End: 12-04-2023 Tobacco use panel [facility] Adolescent depressio n screening assessment 2 [facility] Start: 09-13-2022 Tobacco Comment outside [facility] Start: 2005 Sex Assigned At Not on file [facility] Tobacco smoking stat us NHIS Never smoked tobacco [facility] NEGATED: Highlighted rowStart: NINF History of tobacco use Passive smoker [facility] Clinical Notes 12-04-2023 to 06-07-2025 Note Date & Type Note Facility 06-07-2025 Discharge summary [facility] 06-07-2025 Radiology Diagnostic study note [facility] Imaging Services [address] [place] [address] Foot min 3 Views MR#: [id number] Acct: [id number] Name: KUNAL AGUILAR Rep #: [id number] : 2005 M 19 From: Pet er Peer PCP: Dr. Michael Gloria MD Status: PRE ER Study:Foot min 3 Views Date of Exam: Exam# [id number] Ordering Dr: Michell Kapadia DO PROCEDURE: FOOT MIN 3 VIEWS 06/07/2025 REASON FOR EXAM: PAIN ,SWELLING TRAUMA FROM CONCRETE BLOCK. Initial encounter. TECHNIQUE: FOOT MIN 3 VIEWS Laterality: Left foot COMPARISON: None. FINDINGS: Bones: No fracture, no dislocation. Joints: No significant osteoarthritis Soft tissues: no significant swelling appreciated. Other: RAD/Foot min 3 Views IMPRESSION: No fracture appreciated. If clinical suspicion remains high, conservative treatment and follow-up in x-ray in 2 weeks. If clinically indicated, consider CT exam Reading Location: [facility] CC: Dr. Yrn Kapadia DO; Dr. Michael Gloria MD ~ Terrazzo Laborer: Signed [facility] 06-07-2025 Discharge summary Note Date/Time June 07, 2025 4:28pm [facility] Medical Records Department [address] [place] [address] Emergency Department Summary 06/07/25 MR#: [id number] Acct: [id number] Name: KUNAL AGUILAR Rep #:[id number] : 2005 19 From: Yrn Shaikh PCP: Dr. Michael Gloria MD Status:REG ER Location: ED HPI History of Present Illness Chief Complaint: Lower Extremity Injury [facility] Medical History Anxiety Home Medications ?Medication ?Instructions ?Recorded ?Last Taken ?Type doxycycline monohydrate 100 mg 100 mg PO BID 03/08/22 Unknown History capsule hydroxyzine pamoate 25 mg capsule 25 mg PO TID PRN PRN Anxiety 03/08/22 Unknown History Allergy/AdvReac Type Severity Reaction Status Date / Time No Known Allergies Allergy Verified 06/07/25 14:04 Social History Smoking Status: Current every day smoker tobacco type: e-cigarettes alcohol intake: never EXAM Physical Exam Const Vital Signs: 06/07/25 14:04 Temperature 98.2 F Temperature Source Oral Pulse Rate 113 H Respiratory Rate 16 Blood Pressure 124/81 H Blood Pressure Mean 95 Pulse Ox 98 Oxygen Delivery Method Room Air [facility] Narrative Medical decision making narrative: HISTORY OF PRESENT ILLNESS: Chief complaint: Left foot pain 19-year-old male presents left foot pain after a cement block fell on it. REVIEW OF SYSTEMS: Pertinent positives: Left foot pain Pertinent negatives: Loss of sensation PHYSICAL EXAM: Nursing triage notes reviewed, Vital signs reviewed Constitutional: please see mdm Extremities: No edema, compartments are soft Neuro: Intact sensation L1-S1 dermatomal distributions. Intact 5/5 strength in hip flexion (T12-L3). Knee extension (L2-L4). Ankle dorsiflexion (L4-L5). Ankle plantar flexion (S1). Great toe extension (L5). 2+ patellar and AchillesDTRs. Skin: Slight erythema noted to the dorsum of the foot. No sign of laceration open fracture. MEDICAL DECISION MAKING: Chief Complaint: please see HPI External records reviewed: [Reviewed prior imaging studies Factors affecting care: none Social determinants of health: none History obtained from others: none Consults: none [facility] Narrative: Patient was initially hemodynamically stable, afebrile and nontoxic-appearing. Exam with neurovascular intact left lower extremity. I considered the following differential diagnosis: Foot fracture, dislocation, contusion I obtained an x-ray to further determine if the patient was suffering from a life-threatening etiology. Initially treated with ibuprofen and ice ALL IMAGES (IF OBTAINED) HAVE BEEN PERSONALLY REVIEWED AND INTERPRETED BY MYSELF. X-ray was interpreted personally by myself showed no evidence of obvious fracture or dislocation. The patient and/or family, caregivers express understanding. The patient and/or family, caregivers agrees with the plan. Shared decision making: I will have a discussion with the patient and or visitors regarding risk/benefits of further testing or admission. They will be made aware of of the risk/benefits inherent in this decision they will be given the opportunity to voice understanding. Total critical care time today provided was at least 0 minutes. This excludes separately billable procedures. Critical care time (if documented) is secondary to the patient having high probability of clinically significant/life threatening deterioration in the patient's condition which required my urgent intervention. Impression: 1. Acute foot pain 2. Acute foot contusion Dispo: Discharge home This note was generated with [employer] dictation software. It may contain incorrect words, spelling, and punctuation that were not noted in review of the chart prior to signing. Radiography Diagnostic Testing: Clinical Impression(s) from Imaging Studies Foot X-Ray 06/07/25 15:25 IMPRESSION: No fracture appreciated. If clinical suspicion remains high, conservative treatment and follow-up in x-ray in 2 weeks. If clinically indicated, consider CT exam Reading Location: [facility] Discharge Plan Triage Chief Complaint: Lower Extremity Injury ED Provider: Yrn Kapadia Dx/Rx/DC Orders Prescriptions: No Action doxycycline monohydrate 100 mg capsule 100 mg PO BID hydroxyzine pamoate 25 mg capsule 25 mg PO TID PRN PRN (Reason: Anxiety) Primary Care Provider: Michael Gloria Referrals: Michael Gloria MD [Primary Care Provider] - Print Language: Nicaraguan What to do if you have Problems For any increased pain, shortness of breath, bleeding, nausea or vomiting, chestpain, or any unexpected problems, contact your Primary Care Provider. Call [facility] ([phone]) or report to the closest Emergency Room. Call 911 if necessary. 06/07/25 1628 <Electronically signed by Yrn Kapadia DO> Cosigner Signature (if applicable): CC: Dr. Michael Gloria MD ~ Signed [facility] Work Phone: 1(736) 401-110206-27-2025 Radiology Diagnostic study note [facility] Imaging Services [address] [place], [place] [address] Testicular with Arterial Flow MR#: [id number] Acct: [id number] Name: KUNAL AGUILAR Rep #: [id number] : 2005 M 19 From: Misty Osorio MD PCP: Dr. Michael Gloria MD Status: PRE ER Study:Testicular with Arterial Flow Date of E xam: 04/11/25 Exam# [id number] Ordering Dr: Caleb Hancock MD PROCEDURE: TESTICULAR [...] varicocele. Otherwise unremarkable scrotal ultrasound. Reading Location: [facility] CC: Dr. Trevor Hancock MD; Dr. Michael Gloria MD ~ Terrazzo Laborer: Signed [facility]02-20-2024 Miscellaneous Notes* Telephone Encounter - Abel [place] - 12/05/2023 8:04 AM EST Patient given results and verbalized understanding of instructions given. Abel [place] * Telephone Encounter - Giulia Cunha APRN.CNP - 12/05/2023 7:14 AM EST Negative for chlamydia, gonorrhea, and trichomonas. Please let him know. [facility] NoteHNO ID: [id number] Author: JUANA FRANCIS APRN.CNP Service: ? Author Type: Nurse Practitioner Type: Progress Notes Filed: 12/04/2023 14:46 Note Text: Subjective HPI HPI Kunal Aguilar is a 18 year old male who presents today for CC of burning with urination and blood in semen. This started bad for few weeks. Has tried nothing for relief. Symptoms are worsened by nothing. Current sexual partner stated she may have "something" no elaboration. Denies testicular pain, gu lesion, penile drainage.Reports otherwise feeling well. 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 This started bad for few weeks. Has tried nothing for relief. Symptoms are worsened by nothing. Current sexual partner stated she may have "something" no elaboration. Denies testicular pain, gu lesion, penile drainage.Reports otherwise feeling well. 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 Weston's office at [facility] for follow-up regarding above. [facility] Work Phone: Hospital Discharge instructionsAdditional Instructions Thank you for trusting us with your care today! The x-ray of your foot did not show a fracture, break or dislocation of your bones Please take Tylenol (2 pills, 650 mg), ibuprofen (2 pills, 400 mg) every 6 hours as needed for pain and fever control. Please return to the emergency department if your symptoms change or worsen. Please follow with your primary care physician for further outpatient evaluation and management.[facility] Work Phone: Reason for referral (narrative)* Referral (Routine) - Closed Specialty Diagnoses / Procedures Referred By Contac t Referred To Contact Radiology Diagnoses Anxiety state Chronic abdominal pain Recurrent vomiting Procedures FL Upper GI Without Air Without KUB CHG RADIOLOGIC EXAM UPR GI TRC SINGLE [employer] [place] [address] Referral ID Status Reason Start Date Expiration Date Visits Re quested Visits Authorized [id number] Closed 07/20/2023 07/19/2024 [facility]No reason for referral information availableWCleveland Clinic Work Phone: [facility] for visit Narrative* Referral (Routine) - Closed Specialty Diagnoses / Procedures Referred By Contac t Referred To Contact Radiology Diagnoses Anxiety state Chronic abdominal pain Recurrent vomiting Procedures FL Upper GI Without Air Without KUB CHG RADIOLOGIC EXAM UPR GI TRC SINGLE CONTRAST [place] [address] Referral ID Status Reason Start Date Expiration Date Visits Re quested Visits Authorized [id number] Closed 07/20/2023 07/19/2024 1 1 [facility] Chief Complaint and Reason for Visit Chief Complaint HEMATOCHEZIA/ Melena Chief Complaint ABD PAIN Chief Complaint Admit Date TESTICULAR PAIN April 11, 2025 6:09 pm Chief Complaint Admit Date TESTICULAR PAIN April 11, 2025 6:09 pm left foot injury June 07, 2025 2: 03pm Advance Directives No Advanced Directives Records Found Advance Directive Response Recorded Date/ Time Living Will No March 15, 2016 8 :46pm Power of Human Geography Faculty Member No March 15, 2016 8:46pm Advance Directive Response Recorded Date/ Time Do you have a Healthcare Power of Human Geography Faculty Member? No April 11, 2025 7:37pm Advance Directive Response Recorded Date/ Time Do you have a Healthcare Power of Human Geography Faculty Member? No June 07, 2025 4:59pm Do you have a Healthcare Power of Human Geography Faculty Member? No April 11, 2025 7:37pm Summary Purpose [...] Care Teams (unrecognized sec tion and content) Painter Hand Relationship Specialty Start Date End Date Michael [...] April 11, 2025 End: April 11, 2025 Team Status: Inactive Member Role/Relationship Status Dates Dr. Michael Gloria MD Primary Care Provider Active Start: April 11, 2025 End: April 11, 2025 Dr. Bailey Portillo DO Attending Provider Active S tart: April 11, 2025 End: April 11, 2025 Dr. Bailey Portillo , DO Emergency Provider Active S tart: April 11, 2025 End: April 11, 2025 Team Status: Inactive Member Role/Relationship Status Dates Dr. Michael Gloria MD Primary Care Provider Active Start: June 07, 2025 End: June 07, 2025 Dr. Yrn Kapadia , Emergency Provider Active Start: June 07, 2025 End: June 07, 2025 Source Comments (unrecognize d section and content) In the event this informatio n is protected by the Federal Confidentiality of Alcohol and Drug Abuse Patient Records regulations: The Federal rules restrict any use of the information to criminally investigate or prosecute any alcohol or drug abuse patient.[facility] the event this information is protected by the Federal Confidentiality of Alcohol and Drug Abuse Patient Records regulations: The Federal rules restrict any use of the information to criminally investigate or prosecute any alcohol or drug abuse patient.[facility] Reason for Visit (unrecogniz ed section and content) Reason Comments STD Std testing, blood i n sperm, burning with urination x 6 months Reason Comments Results (unrecognized sect ion and content) No Status Records FoundNo Status Records FoundNo Status Records Found INFORMATION SOURCE (unrecogn ized section and content) DATE CREATED AUTHOR 12/05/2023 [facility] DATE CREATED AUTHOR AUTHOR'S ORGANIZ ATION 01/06/2025 [facility] DATE CREATED AUTHOR AUTHOR'S ORGANIZ ATION 06/14/2025 [facility] FOR RECORDS PERTAINING TO PATIENTS WHO [...] BE BASED ON THE PRIMARY CLINICAL RECORDS. [facility] [employer], [facility]. provides no warranty or guarantee of the accuracy or completeness of information in this document.
== END 2025-08-23 21:50 | disposition left against medical advice (07) ==
LOC: ED 21:51
PROVIDERS: Emergency Provider Emergency Medicine; PCP Pediatrics; Visit Provider Emergency Medicine
DX: R05.9 Cough, unspecified (principal)
CPT/HCPCS: 99282